=== PATIENT | male | born 1970 | race Hispanic/Latino ===

== ENCOUNTER 2018-10-11 10:40 | Observation (INO) | payer SELFPAY ==
[2018-10-11] MEDS ORDERED: IPRATROPIUM BROM 0.5MG/2.5ML ONE (11:08)
[2018-10-11] MEDS ORDERED: LEVALBUTEROL 1.25 MG/3 ML NEB ONE (11:08)
[2018-10-11 11:16] LABS: Absolute Lymphocytes (CBC) 1.4 K/uL (0.7-4.9); Absolute Monocytes 0.5 K/uL (0.1-1.3); Absolute Neutrophil 4.9 K/uL (1.8-8.0); Basophils % 0.5 % (0-1.3); Eosinophils % 2.6 % (0-4.4); Hematocrit 46.8 % (39.6-49.0); Lymphocytes % 20.1 % (15.3-44.8); MCH 32.5 pg (27.0-35.0); MCV 92.5 fL (80-100); MPV 8.9 fL (7.6-11.3); Monocytes % 6.5 % (3.3-12.3); RBC Red Blood Cell Count 5.06 M/uL (4.33-5.43)
[2018-10-11] MEDS ORDERED: NA CHLORIDE 0.9% 1,000 ML ONE (11:20)
[2018-10-11 11:25] LABS: Blood Gas Oxyhemoglobin 91.5 % (94-97); Blood O2 Saturation 93.5 % (92-98.5)
[2018-10-11] MEDS ORDERED: CA GLUCO IV SCH (12:00)
[2018-10-11] MEDS ORDERED: NA CHLORIDE 0.9% IV SCH (12:00)
--- NOTE | 2018-10-11 12:37 | EKG ---
Test Date: 2018-10-11 Test Time: 11:34:51 Evp Operations: VICKI MEASUREMENT RESULTS: Intervals: Rate: 116 TX: 156 QRSD: 82 QT: 324 QTc: 450 [place]: P: 66 TX: 156 QRS: 53 T: -28 INTERPRETIVE STATEMENTS: Sinus tachycardia Low voltage QRS T wave abnormality, consider inferior ischemia Abnormal ECG No previous ECG available for comparison Electronically Signed On 10-11-18 12:37:04 MANAGER WELDING by Ottoniel Calderon
[2018-10-11 12:55] LABS: BUN Blood Urea Nitrogen 15 mg/dL (7-18); Bicarbonate 23 mmol/L (21-32); Glucose Level 400 mg/dL (74-106); Magnesium 2.1 mg/dL (1.8-2.4); NT PRO-BNP 23 pg/mL (<125); Potassium 4.1 mmol/L (3.5-5.1); Sodium Level 135 mmol/L (136-145); Troponin (Emerg Dept Use Only) < 0.02 ng/mL (0.0-0.045)
--- NOTE | 2018-10-11 13:41 | ER ---
Nurse's Notes [facility] Name: Harriet Ng Age: 48 yrs Sex: Male : 1970 Arrival Date: 10/11/2018 Time: 10:42 Bed 20 Private MD: None, None Diagnosis: Respiratory conditions due to inhalation of chemicals, gases, fumes and vapors;Dyspnea, unspecified;Hyperglycemia, unspecified Presentation: 10/11 10:46 Presenting complaint: Patient states: He found a can that was empty of an "aluminum aj1 waste cotton cleaner" they use on the wheels of 18 wheelers. He filled that container with bleach was using it to clean. He was using a pump sprayer and when he opened it the fumes hit him. Reports burning sensation in his throat, shortness of breath. Transition of care: patient was not received from another setting of care. Onset of symptoms was October 11, 2018 at 09:00. Risk Assessment: Do you want to hurt yourself or someone else? Patient reports no desire to harm self or others. Initial Sepsis Screen: Does the patient meet any 2 criteria? RR > 20 per min. Does the patient have a suspected source of infection? No. Patient's initial sepsis screen is negative. Care prior to arrival: None. 10:46 Method Of Arrival: Ambulatory aj1 10:48 Acuity: JIMMY 2 aj1 Triage Assessment: 10:48 General: Appears in no apparent distress. uncomfortable, Behavior is calm, cooperative, aj1 appropriate for age. Pain: Denies pain. Neuro: Level of Consciousness is awake, alert, obeys commands. Cardiovascular: Patient's skin is warm and dry. 10:48 Respiratory: Reports shortness of breath Airway is patent Respiratory effort is even, aj1 labored, Respiratory pattern is regular, symmetrical, Breath sounds are diminished bilaterally. Historical: - Allergies: 10:48 No Known Allergies; aj1 - PMHx: 10:48 Hypertension; aj1 16:00 Diabetes - NIDDM; sv - Immunization history:: Flu vaccine is not up to date. - Social history:: Smoking status: Patient/guardian denies using tobacco. - Ebola Screening: : Patient denies travel to an Ebola-affected area in the 21 days before illness onset. Screenin:30 Abuse screen: Denies threats or abuse. Denies injuries from another. Nutritional sv screening: No deficits noted. Tuberculosis screening: No symptoms or risk factors identified. Fall Risk None identified. Assessment: 11:00 Reassessment: Patient called the distributor that he gets that waste cotton cleaner from. States it aj1 is "Aluminum trailer waste cotton cleaner" and the active ingredients are sulfuric acid, phosphoric acid and hydrofluoric acid. 11:05 General: Appears in no apparent distress. uncomfortable, obese, well developed, sv Behavior is calm, cooperative, appropriate for age. Pain: Denies pain. Neuro: Level of Consciousness is awake, alert, obeys commands, Oriented to person, place, time, situation, Moves all extremities. Full function Gait is steady, Speech looses breath. Respiratory: Reports shortness of breath at rest on exertion labored breathing pain with respiration Airway is patent Respiratory effort is even, labored, Respiratory pattern is symmetrical, tachypnea Breath sounds are clear in right middle lobe Breath sounds are diminished bilaterally. Derm: Skin is pink, warm \\T\\ dry. Musculoskeletal: Range of motion: intact in all extremities. 11:10 Reassessment: Heather from RT at bedside to obtain ABG. sv 11:18 Reassessment: Spoke with Yolie at Poison Control. Recommendations: CXR, baseline labs, aj1 EKG, cardiac monitoring. Watch for pulmonary edema, and delayed onset pulmonary edema. Patient should be admitted for 24 to 48 hours to watch for pulmonary edema. Monitor calicum levels. Give calcium nebulized to bind HF in lungs bu mixing 1 ampule of 2.5% calcium gluconate in 30 mL on NS, give to patient while in the sitting position for 20 minutes. Give bronchodilators and steroids as needed. 11:59 Reassessment: Patient appears in no apparent distress at this time. No changes from sv previously documented assessment. Patient and/or family updated on plan of care and expected duration. Pain level reassessed. Patient is alert, oriented x 3, equal unlabored respirations, skin warm/dry/pink. 14:01 General: Appears in no apparent distress. comfortable, Behavior is calm, cooperative, sv appropriate for age. Neuro: Level of Consciousness is awake, alert, obeys commands, Oriented to person, place, time, situation, Moves all extremities. Full function. Respiratory: Respiratory effort is even, unlabored, Respiratory pattern is symmetrical, tachypnea Breath sounds are clear in right upper lobe, left upper lobe, left posterior upper lobe, right posterior upper lobe and right posterior middle lobe Breath sounds are diminished in left lower lobe, left posterior lower lobe and right posterior lower lobe. Vital Signs: 10:48 BP 132 / 73; Pulse 112; Resp 28; Temp 97.0(TE); Pulse Ox 93% on R/A; Weight 124.74 kg aj1 (R); Height 6 ft. 1 in. (185.42 cm); Pain 0/10; 11:30 BP 111 / 55; Pulse 118; Resp 29; Pulse Ox 97% on 2 lpm NC; sv 12:45 BP 102 / 50; Pulse 115; Resp 21; Pulse Ox 100% on Nebulizer Mask; sv 13:30 BP 114 / 60; Pulse 116; Resp 25; Pulse Ox 100% on Nebulizer Mask; sv 14:15 BP 122 / 70; Pulse 117; Resp 30; Pulse Ox 98% on 2 lpm NC; sv 15:42 BP 101 / 57; Pulse 109; Resp 28; Pulse Ox 97% on 2 lpm NC; sv 10:48 Body Mass Index 36.28 (124.74 kg, 185.42 cm) aj1 ED Course: 10:42 Patient arrived in ED. sb2 10:42 None, None is Private Physician. sb2 10:48 Arm band placed on Patient placed in an exam room. aj1 10:50 Triage completed. aj1 10:53 [facility] kb 10:53 Sky Ramsey MD is Attending Physician. kb 11:05 Patient has correct armband on for positive identification. Bed in low position. Call sv light in reach. laboratory monitor on. Pulse ox on. NIBP on. Door closed. Head of bed elevated. 11:08 Sangita Chapman, RN is Primary Nurse. sv 11:08 Initial lab(s) drawn, by vt, sent to lab. Inserted saline lock: 20 gauge in right hand, sv using aseptic technique. Blood collected. Flushed right hand with 5 ml normal saline. 11:10 Basic Metabolic Panel Sent. sv 11:55 EKG done, by truck technician. reviewed by Mi WOODSON. sm3 13:40 Lyly Daley MD is Hospitalizing Provider. kb 14:08 XRAY Chest (1 view) In Process Unspecified. EDMS 16:00 No provider procedures requiring assistance completed. Patient admitted, IV remains in sv place. intact. Administered Medications: 11:06 Drug: Xopenex (3) 1.25 mg Route: Inhalation; sv 11:25 Follow up: Treatment stopped and will be changed to a different treatment. sv 11:06 Drug: AtroVENT Aerosol 0.5 mg Route: Inhalation; sv 11:25 Follow up: Treatment stopped and will be changed to a different treatment. sv 11:26 Drug: NS 0.9% 1000 ml Route: IV; Rate: 1000 ml; Site: right hand; sv 12:15 Follow up: Response: No adverse reaction; IV Status: Completed infusion; IV Intake: sv 1000ml 11:57 Drug: calcium gluconate 1 amp Route: Inhalation; Infused Over: 20 mins; sv 13:55 CANCELLED (Physician Discretion): Insulin Regular Human 10 units Sub-Q once kb 14:02 Drug: Insulin Regular Human 6 units {Co-Signature: ss (Ruby Medrano RN).} Route: sv Sub-Q; Site: right upper arm; 14:30 Follow up: Response: No adverse reaction sv Point of Care Testing: Blood Glucose: 13:50 Blood Glucose: 301 mg/dL; sv Ranges: Intake: 12:15 IV: 1000ml; Total: 1000ml. sv Outcome: 13:41 Decision to Hospitalize by Provider. kb 16:00 Admitted to Tele accompanied by tech, via wheelchair, room 204, with oxygen, with sv chart, Report called to Will VILLAFANA 16:00 Condition: stable 16:00 Instructed on the need for admit. 16:22 Patient left the ED. sv Signatures: Dispatcher [employer] EDCA Mi Durand, HANDLE LATHE OPERATOR-C HANDLE LATHE OPERATOR-CkWendy Lowe, RN RN aj1 Sangita Chapman RN RN sv Susan Singh sb2 Sonia Mendiola sm3 Ruby Medrano RN ss
--- NOTE | 2018-10-11 13:42 | EDPHYS ---
Physician Documentation [facility] Name: Harriet Ng Age: 48 yrs Sex: Male : 1970 Arrival Date: 10/11/2018 Time: 10:42 Bed 20 Private MD: None, None ED Physician Sky Ramsey HPI: 10/11 11:34 This 48 yrs old Male presents to ER via Ambulatory with complaints of Chemical Exposure.kb 11:34 Type of Exposure: potential inhalation, a chemical, bleach, hydrofluoric acid. Area of kb exposure: face. Context: The problem was sustained at home. Onset: The symptoms/episode began/occurred just prior to arrival. Symptoms: shortness of breath and burning to throat. The patient has not experienced similar symptoms in the past. The patient has not recently seen a physician. Pt states he mixed some bleach with a container of hydrofluoric acid to clean something. Reports he inhaled the fumes and it caused shortness of breath and burning to the throat. . Historical: - Allergies: 10:48 No Known Allergies; aj1 - PMHx: 10:48 Hypertension; aj1 16:00 Diabetes - NIDDM; sv - Immunization history:: Flu vaccine is not up to date. - Social history:: Smoking status: Patient/guardian denies using tobacco. - Ebola Screening: : Patient denies travel to an Ebola-affected area in the 21 days before illness onset. ROS: 11:52 Constitutional: Negative for fever, chills, and weight loss, Cardiovascular: Negative kb for chest pain, palpitations, and edema, Abdomen/GI: Negative for abdominal pain, nausea, vomiting, diarrhea, and constipation, Back: Negative for injury and pain, MS/Extremity: Negative for injury and deformity, Skin: Negative for injury, rash, and discoloration, Neuro: Negative for headache, weakness, numbness, tingling, and seizure. 11:52 ENT: Positive for sore throat. 11:52 Respiratory: Positive for shortness of breath. Exam: 11:52 Constitutional: This is a well developed, well nourished patient who is awake, alert, kb and in no acute distress. Head/Face: Normocephalic, atraumatic. ENT: Nares patent. No nasal discharge, no septal abnormalities noted. Tympanic membranes are normal and external auditory canals are clear. Oropharynx with no redness, swelling, or masses, exudates, or evidence of obstruction, uvula midline. Mucous membranes moist. Neck: Trachea midline, no thyromegaly or masses palpated, and no cervical lymphadenopathy. Supple, full range of motion without nuchal rigidity, or vertebral point tenderness. No Meningismus. Chest/axilla: Normal chest wall appearance and motion. Nontender with no deformity. No lesions are appreciated. Cardiovascular: Regular rate and rhythm with a normal S1 and S2. No gallops, murmurs, or rubs. Normal PMI, no JVD. No pulse deficits. Abdomen/GI: Soft, non-tender, with normal bowel sounds. No distension or tympany. No guarding or rebound. No evidence of tenderness throughout. Skin: Warm, dry with normal turgor. Normal color with no rashes, no lesions, and no evidence of cellulitis. MS/ Extremity: Pulses equal, no cyanosis. Neurovascular intact. Full, normal range of motion. Neuro: Awake and alert, GCS 15, oriented to person, place, time, and situation. Cranial nerves II-XII grossly intact. Motor strength 5/5 in all extremities. Sensory grossly intact. Cerebellar exam normal. Normal gait. 11:52 Respiratory: the patient does not display signs of respiratory distress, Respirations: normal, Breath sounds: decreased breath sounds, that are mild, are located in both bases. Vital Signs: 10:48 BP 132 / 73; Pulse 112; Resp 28; Temp 97.0(TE); Pulse Ox 93% on R/A; Weight 124.74 kg aj1 (R); Height 6 ft. 1 in. (185.42 cm); Pain 0/10; 11:30 BP 111 / 55; Pulse 118; Resp 29; Pulse Ox 97% on 2 lpm NC; sv 12:45 BP 102 / 50; Pulse 115; Resp 21; Pulse Ox 100% on Nebulizer Mask; sv 13:30 BP 114 / 60; Pulse 116; Resp 25; Pulse Ox 100% on Nebulizer Mask; sv 14:15 BP 122 / 70; Pulse 117; Resp 30; Pulse Ox 98% on 2 lpm NC; sv 15:42 BP 101 / 57; Pulse 109; Resp 28; Pulse Ox 97% on 2 lpm NC; sv 10:48 Body Mass Index 36.28 (124.74 kg, 185.42 cm) aj1 MDM: 10:53 Patient medically screened. kb 11:52 Data reviewed: vital signs, nurses notes. Data interpreted: Pulse oximetry: on room air kb is 97 %. Interpretation: normal. 13:03 ED course: Poison control contacted. Recommend baseline labs, CXR, EKG, nebulized kb calcium gluconate and hospitalization for 24-48 hours for monitoring. 13:37 Counseling: I had a detailed discussion with the patient and/or guardian regarding: the kb historical points, exam findings, and any diagnostic results supporting the discharge/admit diagnosis, lab results, radiology results, the need for further work-up and treatment in the hospital. Physician consultation: Lyly Daley MD was contacted at 13:37, regarding admission, to the telemetry unit. patient's condition. 10/11 10:59 Order name: Basic Metabolic Panel kb 10/11 10:59 Order name: CBC with Diff; Complete Time: 11:18 kb 10/11 10:59 Order name: Magnesium; Complete Time: 13:05 kb 10/11 10:59 Order name: NT PRO-BNP; Complete Time: 13:06 kb 10/11 10:59 Order name: Troponin (emerg Dept Use Only); Complete Time: 13:06 kb 10/11 10:59 Order name: ABG; Complete Time: 11:53 kb 10/11 10:59 Order name: XRAY Chest (1 view); Complete Time: 14:24 kb 10/11 11:00 Order name: Basic Metabolic Panel; Complete Time: 13:05 EDMS 10/11 13:56 Order name: Glucose, Ancillary Testing; Complete Time: 14:00 EDMS 10/11 10:59 Order name: EKG; Complete Time: 11:00 kb 10/11 10:59 Order name: Cardiac monitoring; Complete Time: 11:10 kb 10/11 10:59 Order name: EKG - Nurse/Tech; Complete Time: 11:58 kb 10/11 10:59 Order name: IV Saline Lock; Complete Time: 11:10 kb 10/11 10:59 Order name: Labs collected and sent; Complete Time: 11:10 kb 10/11 10:59 Order name: O2 Per Protocol; Complete Time: 11:10 kb 10/11 10:59 Order name: O2 Sat Monitoring; Complete Time: 11:10 kb 10/11 11:41 Order name: Labs - recollect needed; Complete Time: 13:20 bd Administered Medications: 11:06 Drug: Xopenex (3) 1.25 mg Route: Inhalation; sv 11:25 Follow up: Treatment stopped and will be changed to a different treatment. sv 11:06 Drug: AtroVENT Aerosol 0.5 mg Route: Inhalation; sv 11:25 Follow up: Treatment stopped and will be changed to a different treatment. sv 11:26 Drug: NS 0.9% 1000 ml Route: IV; Rate: 1000 ml; Site: right hand; sv 12:15 Follow up: Response: No adverse reaction; IV Status: Completed infusion; IV Intake: sv 1000ml 11:57 Drug: calcium gluconate 1 amp Route: Inhalation; Infused Over: 20 mins; sv 13:55 CANCELLED (Physician Discretion): Insulin Regular Human 10 units Sub-Q once kb 14:02 Drug: Insulin Regular Human 6 units {Co-Signature: ss (Ruby Medrano RN).} Route: sv Sub-Q; Site: right upper arm; 14:30 Follow up: Response: No adverse reaction sv Point of Care Testing: Blood Glucose: 13:50 Blood Glucose: 301 mg/dL; sv Ranges: Critical Glucose Levels:Adult <50 mg/dl or >400 mg/dl <40 mg/dl or >180 mg/dl Disposition: 10/11/18 13:41 Hospitalization ordered by Lyly Daley for Observation. Preliminary diagnosis are Respiratory conditions due to inhalation of chemicals, gases, fumes and vapors, Dyspnea, unspecified, Hyperglycemia, unspecified. - Bed requested for Telemetry/MedSurg (observation). - Status is Observation. sv - Condition is Stable. - Problem is new. - Symptoms are unchanged. UTI on Admission? No Addendum: 10/16/2018 06:23 Co-signature as Attending Physician, Sky Ramsey MD I agree with the assessment and c diana plan of care. Signatures: Dispatcher [employer] Mi Gomez FNP-C FNP-Cassia Mckinney Angela RN RN ajSangita Matos RN RN sv Siria Hernandez RN RN dw Anderson, Corey, MD MD cha Shelby Smirch RN ss Corrections: (The following items were deleted from the chart) 10/11 13:41 13:41 Hospitalization Ordered by Lyly Daley MD for Observation. Preliminary diagnosis kb is Respiratory conditions due to inhalation of chemicals, gases, fumes and vapors; Dyspnea, unspecified. Bed requested for Telemetry/MedSurg (observation). Status is Observation. Condition is Stable. Problem is new. Symptoms are unchanged. UTI on Admission? No. kb 13:55 13:40 Insulin Regular Human 10 units Sub-Q once ordered. kb kb 15:34 13:41 10/11/2018 13:41 Hospitalization Ordered by Lyly Daley MD for Observation. dw Preliminary diagnosis is Respiratory conditions due to inhalation of chemicals, gases, fumes and vapors; Dyspnea, unspecified; Hyperglycemia, unspecified. Bed requested for Telemetry/MedSurg (observation). Status is Observation. Condition is Stable. Problem is new. Symptoms are unchanged. UTI on Admission? No. kb 16:22 15:34 10/11/2018 13:41 Hospitalization Ordered by Lyly Daley MD for Observation. sv Preliminary diagnosis is Respiratory conditions due to inhalation of chemicals, gases, fumes and vapors; Dyspnea, unspecified; Hyperglycemia, unspecified. Bed requested for Telemetry/MedSurg (observation). Status is Observation. Condition is Stable. Problem is new. Symptoms are unchanged. UTI on Admission? No. dw
[2018-10-11] MEDS ORDERED: INSULIN -REGULAR HUMAN 50 UNIT/0.5 ML ML ONE (14:03)
--- NOTE | 2018-10-11 14:24 | RAD REPORT ---
EXAM DESCRIPTION: RAD - Chest Single View - 10/11/2018 2:08 pm CLINICAL HISTORY: DYSPNEA Chest pain. COMPARISON: No comparisons FINDINGS: Portable technique limits examination quality. Mild interstitial pulmonary edema is present. The heart is normal in size. No displaced fractures. IMPRESSION: Mild interstitial pulmonary edema is present.
--- NOTE | 2018-10-11 15:17 | P.HP ---
Certification for Inpatient Patient admitted to: Observation With expected LOS: <2 Midnights Practitioner: I am a practitioner with admitting privileges, knowledge of patient current condition, hospital course, and medical plan of care. Services: Services provided to patient in accordance with Admission requirements found in Title 42 Section 412.3 of the Code of Federal Regulations Patient History Date of Service: 10/11/18 Primary Care Provider: None Reason for admission: Shortness of breath History of Present Illness: This is a 48-year-old male with history hypertension and diabetes admitted for shortness of breath, burning of his throat. Per patient, he makes some Clorox/ bleach with acid that was in a bottle in order to clean the front of his house. He noted the reaction in the bottle and he saw the pressure building up inside the bottle but he still opened the top of the bottle and accidentally breathed in the fumes through his nose and mouth. Since then he has been having shortness of breath and burning of his throat. In the ER, he was given breathing treatment of calcium gluconate to buying the acid, and was put on oxygen via nasal cannula. Poison control was called, recommended monitoring for delayed onset pulmonary edema. At the time of my exam, patient was on 2 L nasal cannula, in no acute distress, alert oriented x3. Allergies No Known Allergies Allergy (Unverified 10/11/18 11:35) - Past Medical/Surgical History Diabetic: Yes -: Hypertension -: Diabetes mellitus, type 2 Review of Systems General: Unremarkable Eyes: Unremarkable ENT: Throat Pain, As per HPI Respiratory: Shortness of Breath, As per HPI Cardiovascular: Unremarkable Gastrointestinal: Unremarkable Genitourinary: Unremarkable Musculoskeletal: Unremarkable Integumentary: Unremarkable Neurological: Unremarkable Lymphatics: Unremarkable Physical Examination - Physical Exam General: Alert, In no apparent distress, Oriented x3 HEENT: Atraumatic, PERRLA, Mucous membr. moist/pink, EOMI, Sclerae nonicteric Neck: Supple, 2+ carotid pulse no bruit, No LAD, Without JVD or thyroid abnormality Respiratory: Clear to auscultation bilaterally, Normal air movement, Other (No evidence of edema noted on exam at this time) Cardiovascular: Regular rate/rhythm, Normal S1 S2 Gastrointestinal: Normal bowel sounds, No tenderness Musculoskeletal: No tenderness Integumentary: No rashes Neurological: Normal gait, Normal speech, Normal strength at 5/5 x4 extr, Normal tone, Normal affect Lymphatics: No axilla or inguinal lymphadenopathy - Studies Laboratory Data (last 24 hrs) 10/11/18 12:10: Sodium 135 L, Potassium 4.1, BUN 15, Creatinine 1.00, Glucose 400 H, Magnesium 2.1 10/11/18 11:08: WBC 7.0, Hgb 16.4, Hct 46.8, Plt Count 180 Assessment and Plan - Plan This is a 48-year-old male with: Acute dyspnea secondary to inhalation of toxic fumes: Improved Continue oxygen via nasal cannula as needed. Will try to wean off as tolerated Initial chest x-ray with mild interstitial fluid, though does not sound like fluid overloaded on exam. Will repeat chest x-ray tomorrow, and if no symptomatic improvement may consider adding Lasix for diuresis. Essential Hypertension The patient takes Avapro at home, unsure of dosage. Currently stable blood pressure. Will restart home medications once dosage confirmed. Diabetes mellitus, type 2 with hyperglycemia Per patient, he has diabetes medication at home but he does not regularly take with them at home. Accu-Cheks and sliding scale insulin ordered. Educated patient on importance of taking medications and having primary care physician follow up for chronic diseases. Will need to provide a list of PCPs prior to discharge. DVT prophylaxis: Not indicated GI prophylaxis: Not indicated Diet: Diabetic diet Disposition: Admit to floor for observation, with tele. Monitor respiratory symptoms. Discharge Plan: Home - Advance Directives Does patient have a Living Will: No Does patient have a Durable POA for Healthcare: No Physician Review: Patient Assessed, Agree with Above Assessment and Plan Time Spent Managing Pts Care (In Minutes): 55
[2018-10-11] MEDS ORDERED: ACETAMINOPHEN 500 MG TAB PO PRN (16:56)
[2018-10-11] MEDS ORDERED: ONDANSETRON 4 MG/2 ML VIAL IV PRN (16:56)
[2018-10-11 17:44] VITALS: BMI 32.3
[2018-10-11] MEDS: INSULIN -REGULAR HUMAN 50 UNIT/0.5 ML ML SQ SCH ×2 (18:10→22:10)
[2018-10-11 19:28] LABS: Urine Appearance CLEAR; Urine Bilirubin NEGATIVE (NEG); Urine Blood NEGATIVE (NEG); Urine Color YELLOW; Urine Glucose 3+ (NEG); Urine Protein NEGATIVE (NEG); Urine Specific Gravity >=1.030 (1.005-1.030); Urine pH 6.5 (5.0-7.0)
[2018-10-11 19:38] LABS: Urine Microscopic Reflex NO UMIC
[2018-10-12 05:36] LABS: Absolute Lymphocytes (CBC) 1.2 K/uL (0.7-4.9); Absolute Monocytes 0.4 K/uL (0.1-1.3); Absolute Neutrophil 2.3 K/uL (1.8-8.0); Basophils % 0.3 % (0-1.3); Eosinophils % 4.4 % (0-4.4); Hematocrit 42.1 % (39.6-49.0); Lymphocytes % 29.9 % (15.3-44.8); MCH 32.6 pg (27.0-35.0); MCV 92.2 fL (80-100); RBC Red Blood Cell Count 4.57 M/uL (4.33-5.43)
[2018-10-12 05:51] LABS: ALT/SGPT 65 U/L (12-78); AST/SGOT 49 U/L (15-37); Albumin 3.3 g/dL (3.4-5.0); Alkaline Phosphatase 95 U/L (45-117); BUN Blood Urea Nitrogen 13 mg/dL (7-18); Bicarbonate 27 mmol/L (21-32); Bilirubin Total 0.9 mg/dL (0.2-1.0); Glucose Level 208 mg/dL (74-106); Phosphorus 3.7 mg/dL (2.5-4.9); Potassium 3.9 mmol/L (3.5-5.1); Protein, Total 6.7 g/dL (6.4-8.2); Sodium Level 136 mmol/L (136-145)
[2018-10-12] MEDS ORDERED: POTASSIUM CL SA 10 MEQ TAB PO ONE (06:00)
[2018-10-12] MEDS: INSULIN -REGULAR HUMAN 50 UNIT/0.5 ML ML SQ SCH ×2 (08:27→11:41)
[2018-10-12 08:42] VITALS: TEMP 97.4
[2018-10-12 09:50] VITALS: O2SAT 94
--- NOTE | 2018-10-12 12:04 | RAD REPORT ---
EXAM DESCRIPTION: RAD - Chest Pa And Lat (2 Views) - 10/12/2018 8:11 am CLINICAL HISTORY: Shortness of breath Chest pain. COMPARISON: Chest Single View dated 10/11/2018 FINDINGS: Streaky linear opacities are present in the left lung base which may represent atelectasis or aspiration. The lungs are otherwise clear. The heart is normal in size. No displaced fractures.
[2018-10-12 12:28] VITALS: BP 132/75
--- NOTE | 2018-10-12 12:47 | P.SSS ---
Patient History Date of Service: 10/12/18 Primary Care Provider: None Reason for admission: Shortness of breath History of Present Illness: This is a 48-year-old male with history hypertension and diabetes admitted for shortness of breath, burning of his throat. Per patient, he makes some Clorox/ bleach with acid that was in a bottle in order to clean the front of his house. He noted the reaction in the bottle and he saw the pressure building up inside the bottle but he still opened the top of the bottle and accidentally breathed in the fumes through his nose and mouth. Since then he has been having shortness of breath and burning of his throat. In the ER, he was given breathing treatment of calcium gluconate to buying the acid, and was put on oxygen via nasal cannula. Poison control was called, recommended monitoring for delayed onset pulmonary edema. At the time of my exam, patient was on 2 L nasal cannula, in no acute distress, alert oriented x3. Allergies No Known Allergies Allergy (Verified 10/11/18 17:56) Home Medications: Atorvastatin Calcium 20 mg PO BEDTIME 10/11/18 Irbesartan/Hydrochlorothiazide [Avalide 150-12.5 mg Tablet] 1 each PO DAILY Metformin HCl [Glucophage*] 500 mg PO BID 10/11/18 - Past Medical/Surgical History Diabetic: Yes -: Hypertension -: Diabetes mellitus, type 2 - Family History Mother -: Hypertension, Diabetes Father -: Cancer - Social History Smoking Status: Never smoker Alcohol use: Yes CD- Drugs: No Caffeine use: Yes Place of Residence: Home Review of Systems As noted Physical Examination - Vital Signs Temperature: 97.4 F Blood Pressure: 132/75 Pulse: 91 Respirations: 18 Pulse Ox (%): 96 - Physical Exam General: Alert, In no apparent distress, Oriented x3 HEENT: Atraumatic, PERRLA, Mucous membr. moist/pink, EOMI, Sclerae nonicteric Neck: Supple, 2+ carotid pulse no bruit, No LAD, Without JVD or thyroid abnormality Respiratory: Clear to auscultation bilaterally, Normal air movement Cardiovascular: Regular rate/rhythm, Normal S1 S2 Gastrointestinal: Normal bowel sounds, No tenderness Musculoskeletal: No tenderness Integumentary: No rashes Neurological: Normal gait, Normal speech, Normal strength at 5/5 x4 extr, Normal tone, Normal affect Lymphatics: No axilla or inguinal lymphadenopathy - Studies Laboratory Data (last 24 hrs) 10/11/18 12:10: Sodium 135 L, Potassium 4.1, BUN 15, Creatinine 1.00, Glucose 400 H, Magnesium 2.1 Treatment Summary: Acute dyspnea secondary to inhalation of toxic fumes: Resolved. At the time of discharge, patient breathing well on room air, satting well on room air. In no acute distress, alert oriented x3. Repeat chest x-ray reviewed, no abnormalities noted. No Lasix as needed, no evidence of pulmonary edema noted. Patient to be discharged home in a stable manner. No medication changes made. Essential Hypertension Remained stable on home medications. No changes made. Diabetes mellitus, type 2 with hyperglycemia Per patient, he has diabetes medication at home but he does not regularly take with them at home. Educated patient on importance of taking medications and having primary care physician follow up for chronic diseases. Patient states he does have a primary care physician, he will make an appointment for further management. He will restart his home metformin on a regular basis till then. - Disposition Condition: GOOD Patient Discharge Instructions: Please follow up with the primary care physician in 1 week. Please restart taking your diabetes medications as prescribed as we discussed. Diet: ADA Activity: Ad stephani Physician Review: Patient Assessed, Agree with Above Assessment and Plan Time Spent Managing Pts Care (In Minutes): 45
== END 2018-10-12 13:13 | disposition home or self-care (01) ==
LOC: ER 10:40 → ERHOLD 13:43 → 2ND 16:00
PROVIDERS: ADMIT Family Medicine; ATTEND Family Medicine
DX: T54.91XA Toxic effect of unspecified corrosive substance, accidental (unintentional), initial encounter (principal); R06.02 Shortness of breath; Y92.007 Garden or yard of unspecified non-institutional (private) residence as the place of occurrence of the external cause; I10 Essential (primary) hypertension; E11.65 Type 2 diabetes mellitus with hyperglycemia
CPT/HCPCS: 36415; 71045; 71046; 80048; 80053; 81003; 82805; 82962; 83735; 83880; 84100; 84484; 85025; 93005; 94760; 96360; 96372; 99285; G0378; J0610; J7030

== ENCOUNTER 2024-01-13 10:55 | Day surgery (SDC) | payer OTHER ==
[2024-01-11 15:44] LABS: Absolute Lymphocytes (CBC) 0.8 K/uL (0.7-4.9); Hematocrit 41.4 % (39.6-49.0); MCV 93.3 fL (80-100); MPV 8.6 fL (7.6-11.3); Platelets 82 thou/uL (152-406); RBC Red Blood Cell Count 4.44 M/uL (4.33-5.43)
[2024-01-11 15:45] LABS: Blood Morphology Comment NOT SEEN (NOT SEEN); Platelet Estimate DECR; White Blood Cell Scan OK (OK)
[2024-01-11 15:57] LABS: Potassium 4.4 mEq/L (3.5-5.1)
--- NOTE | 2024-01-11 15:59 | RAD REPORT ---
EXAM DESCRIPTION: RAD - Chest Pa And Lat (2 Views) - 01/11/2024 3:52 pm CLINICAL HISTORY: pre op, hypertension and diabetes COMPARISON: Chest Pa And Lat (2 Views) dated 10/12/2018; Chest Single View dated 10/11/2018 FINDINGS: Lines: None. Lungs: No evidence of edema or pneumonia. Pleural: No significant pleural effusions or pneumothorax. Cardiac: The heart size is within normal limits. Mediastinum: Within normal limits. Bones: No acute fractures. Other: None IMPRESSION: No acute cardiopulmonary disease.
--- NOTE | 2024-01-12 16:07 | EKG ---
Test Date: 2024-01-11 Test Time: 16:25:49 Senior Environmental Consultant: NOLBERTO MEASUREMENT RESULTS: Intervals: Rate: 86 UT: 146 QRSD: 94 QT: 352 QTc: 421 [place]: P: 62 UT: 146 QRS: 32 T: -6 INTERPRETIVE STATEMENTS: Normal sinus rhythm Normal ECG Compared to ECG 10/11/2018 11:34:51 Sinus tachycardia no longer present T-wave abnormality no longer present Possible ischemia no longer present Electronically Signed On 01-12-24 16:04:45 SPOOLING MACHINE OPERATOR by Harsh Magana
[2024-01-13] MEDS: NA CHLORIDE 0.9% 1,000 ML ONE (11:11)
[2024-01-13] MEDS ORDERED: MIDAZOLAM HCL 2 MG/2 ML INJ ONE (12:10)
[2024-01-13] MEDS ORDERED: propofoL 200 MG/20 ML VIAL IV ONE (12:10)
[2024-01-13] MEDS ORDERED: ROCURONIUM 50 MG/5 ML VIAL IV ONE (12:10)
[2024-01-13] MEDS ORDERED: LIDOCAINE 2% MPF 5 ML VIAL ONE (12:10)
[2024-01-13] MEDS ORDERED: GLYCOPYRROLATE 0.2 MG/ML SYR ONE (12:13)
[2024-01-13] MEDS ORDERED: dexAMETHasone 10 MG/ML VIAL ONE (12:13)
[2024-01-13] MEDS ORDERED: KETOROLAC 30 MG/ML INJ ONE (12:13)
[2024-01-13] MEDS ORDERED: NEOSTIGMINE 1 MG/ML -10 ML VIAL ONE (12:13)
[2024-01-13] MEDS ORDERED: ROPIVACAINE HCL 0 ML ONE (12:17)
[2024-01-13] MEDS ORDERED: HYDROMORPHONE HCL 2 MG/ML inj ONE (12:17)
[2024-01-13] MEDS ORDERED: DEXMEDETOMIDINE HCL 200 MCG/2 ML VIAL ONE (12:17)
[2024-01-13] MEDS: CEFAZOLIN SODIUM 1 GM/VIAL ONE (12:29)
[2024-01-13] MEDS: Ringers Lactate 1,000 ML IV ONE (13:15)
--- NOTE | 2024-01-13 13:33 | P.BOP ---
Preoperative diagnosis: incarcerated tender umbilical hernia Postoperative diagnosis: same Primary procedure: Laparoscopic repair of incarcerated tender umbilical hernia with mesh Estimated blood loss: <10cc Specimen: sac Findings: as above . nodular liver (see picture) Anesthesia: General Complications: None Transferred to: Recovery Room Condition: Good
[2024-01-13 14:18] VITALS: O2SAT 96
[2024-01-13] MEDS: HYDROCODONE/APAP 5/325 MG TAB ONE (14:27)
[2024-01-13 15:35] VITALS: BP 126/59; TEMP 97.2
--- NOTE | 2024-01-14 00:26 | OP ---
Date of Procedure: 01/13/2024 Surgeon: Alexis Harry MD Preoperative Diagnoses: Incarcerated tender umbilical hernia, morbid obesity. Postoperative Diagnoses: Incarcerated tender umbilical hernia, morbid obesity. Procedures: Laparoscopic repair of incarcerated tender umbilical hernia with mesh. Estimated Blood Loss: Less than 10 cc. Specimen: Hernia sac. Findings: Incarcerated omentum with some small bowel pushing through into the umbilical hernia. Als o, when we put the cameras in, we noticed a very multinodular liver. He will be advised to see his g astroenterologist to rule out cirrhosis of the liver. I took some pictures for him to show his gastr oenterologist. Anesthesia: General plus local. Complications: None. Indications: This is a case of a 53-year-old patient who comes to us with incarcerated tender umbili alexey hernia and also morbid obesity. The patient was fully explained the need to lose some weight. A t the same time, he was fully explained the benefits, alternatives, and risks, laparoscopic and possi ble open repair of incarcerated tender umbilical hernia, which include, but not limited to, infection , bleeding, damage to adjacent structures, anesthesia complication, recurrence, ND, and even . He also understands this may not relieve any symptoms. He might need more than one surgical interven tion. He also understands the need of weight loss and no heavy lifting. We may be using mesh in hanh t region, so pros and cons of mesh placement discussed with the patient. All the questions were answ ered to his satisfaction. He signed a consent. Procedure In Detail: The patient was brought to the operating room, placed in supine position. Anes thesia was done without complication. Abdominal area was prepped and draped in the usual sterile fas hion. Marcaine 0.5% was injected for local anesthetic, followed by sharp incision of the skin in the periumbilical region. Incision was carried down to the hernia sac. We had a lot of skin attached t o the umbilical hernia sac. This was large. We carefully inspected the hernia sac. Reduced some of the bowel present in that region with some omentum. Then, took this hernia sac all the way down to the ring of the fascia. We noticed the rings of the fascia, even though it is present, it was still weak, so we may have to put mesh in that region. The ring of the fascia was carefully cleaned. We p laced #1 Prolene in a mwyxgg-[id number] fashion multiple times to approximate the defect. Before we ti ed those, we put a Liliana trocar in. This allowed me to obtain pneumoperitoneum. We inspected the i ntraabdominal area further. We placed two 5 mm trocars, 1 on the left side, 1 on the right side and then changed the camera to that region to visualize the area of the center. We noted that we have a median Ventralex mesh. We can cover the defect by 3 to 5 cm, so we introduced the Ventralex mesh thr ough the umbilical trocar. Removed the umbilical trocar. Tied the stitches, most of them, but not t he last one since we want to make sure we secured the Ventralex to the anterior abdominal wall with S orbaFix first. Once we had those, then we proceeded to remove the strap of the Ventralex mesh and cl osed the fascia with #1 Prolene multiple times [id number] fashion and then we further circumfere ntially under direct visualization fixated the mesh to the anterior abdominal wall using SorbaFix fix ation device. The area was irrigated. No bleeding. The area of the bowel and the omentum looked in tact. The mesh looked nice against the anterior abdominal wall with no tissue in between other than the fascia and the peritoneum. We carefully deflated pneumoperitoneum under direct visualization and removed the trocars. Then, closed the subcutaneous tissue of the umbilical region with 3-0 chromic and the skin with esperanza and cotton balls on top. Sponge count and instrument counts correct. The patient tolerated procedure well. The patient was sent to recovery in stable condition. Disposition: Home. Condition: Stable. Activity: As tolerated. No lifting. Followup: In my office in 1 week, call for appointment #[phone]. Keep surgical area intact until h e sees us again in the clinic. He was advised to discuss with the needle process felt goods supervisor and his primary doctor soon, workup for cirrhosis of the liver of unknown etiology. HM/MODL Voice ID: [id number] Report ID: [id number]
== END 2024-01-13 15:10 | disposition home or self-care (01) ==
LOC: OR 10:55
PROVIDERS: ATTEND Surgery
PROC: 0WUF4JZ Supplement Abdominal Wall with Synthetic Substitute, Percutaneous Endoscopic Approach (ICD-10-PCS; principal; 2024-01-13 12:30)
DX: K42.0 Umbilical hernia with obstruction, without gangrene (principal); E66.01 Morbid (severe) obesity due to excess calories; Z68.32 Body mass index [BMI] 32.0-32.9, adult
CPT/HCPCS: 93005; 85025; 80048; 36415; 82947 ×2; 88302; 71046; 49594; J2704; J2710; J2001; J2250; J1170; J1100; J7120; J7030; J0690

== ENCOUNTER 2024-12-25 11:03 | Inpatient (IN) | payer OTHER ==
--- NOTE | 2024-12-25 12:42 | RAD REPORT ---
EXAMINATION: XR Foot Left 3 View CLINICAL INDICATION: Male, 54 years old. [facility] MAIN wound Bed Name: 28 TECHNIQUE: 3 view radiographs of the left foot were obtained. COMPARISON: No prior exam. FINDINGS: Osseous destructive changes and lucency involving the head of the fifth metatarsal, with ad jacent soft tissue swelling and gas. Gas also extends along the base of the fifth toe and fourth toe in the region of the fourth metatarsophalangeal joint, both along the volar and dorsal aspects. J oint alignment is maintained. No evidence of acute fractures. Vascular calcifications. Mild enthesopathy at the Achilles tendon attachment. No significant degenerative changes. IMPRESSION: Soft tissue gas along the lateral forefoot as above, with osseous mild destructive changes and lucenc ies involving the head of the fifth metatarsal, concerning for ongoing acute osteomyelitis.
[2024-12-25] MEDS ORDERED: NA CHLORIDE 0.9% 250 ML ONE (12:50)
[2024-12-25] MEDS ORDERED: NA CHLORIDE 0.9% 100 ML ONE (12:50)
[2024-12-25] MEDS ORDERED: PIPERACIL/TAZO 3.375 GM VIAL IV ONE (12:50)
[2024-12-25] MEDS ORDERED: VANCOMYCIN 1 GM/VIAL ONE ×2 (12:50→15:32)
[2024-12-25 12:59] LABS: Absolute Eosinophils 0.1 K/uL (0-0.5); Absolute Lymphocytes (CBC) 0.7 K/uL (0.7-4.9); Absolute Monocytes 0.9 K/uL (0.1-1.3); Absolute Neutrophil 5.7 K/uL (1.8-8.0); Basophils % 0.6 % (0-1.3); Eosinophils % 1.8 % (0-4.4); Hemoglobin 11.7 g/dL (13.6-17.9); Lymphocytes % 9.5 % (15.3-44.8); MCH 29.7 pg (27.0-35.0); MCHC 34.3 g/dL (32.0-36.0); MCV 86.5 fL (80-100); MPV 8.7 fL (7.6-11.3); Monocytes % 11.8 % (3.3-12.3); Neutrophils % 76.3 % (41.7-73.7); Platelets 122 thou/uL (152-406); RBC Red Blood Cell Count 3.94 M/uL (4.33-5.43); Red Cell Distribution Width 15.2 % (12.1-15.2)
[2024-12-25 13:19] LABS: PT Prothrombin Time 15.2 SECONDS (9.4-12.5); PTT, Activated Partial Thromb 34.6 SECONDS (24.3-36.9); Protime INR 1.45
[2024-12-25 13:20] LABS: Albumin 2.5 g/dL (3.4-5.0); Albumin/Globulin Ratio 0.5 (1.1-1.8); Anion Gap 10.2 mEq/L (5.0-15.0); Bilirubin Total 1.8 mg/dL (0.2-1.0); Globulin 4.6 g/dL (2.3-3.5); Potassium 4.2 mEq/L (3.5-5.1); Protein, Total 7.1 g/dL (6.4-8.2)
--- NOTE | 2024-12-25 13:36 | EDPHYS ---
Physician Documentation [facility] Name: Harriet Ng Age: 54 yrs Sex: Male : 1970 Arrival Date: 12/25/2024 Time: 11:03 Bed 28 Private MD: ED Physician Mark Yang HPI: 12/25 11:29 This 54 yrs old Male presents to ER via Ambulatory with complaints of Wound ms3 Infection - right foot. 11:29 Harriet Ng presents to the Emergency Department with a complaint of foot wound that ms3 has been ongoing for seven to eight days. He has not sought medical care for this issue prior to today. He reports having diabetes and is experiencing pain, which he rates a 6/10 a scale of one to ten. He reports that the pain is located in between his toes and is spreading. He does not report having any fevers, chills, nausea, or vomiting.. Historical: - Allergies: 11:13 No Known Allergies; ll1 - Home Meds: 11:13 vitamins [Active]; ll1 - PMHx: 11:13 Diabetes - NIDDM; Hypertension; ll1 - PSHx: 11:13 hernia repair (Hypertension); ll1 - Immunization history:: Adult Immunizations up to date. - Infectious Disease History:: Denies. - Social history:: Smoking status: Patient denies any tobacco usage or history of. ROS: 11:29 Constitutional: Negative for fever, and chills. Cardiovascular: Negative for chest ms3 pain, and palpitations. Respiratory: Negative for shortness of breath, cough, wheezing, and pleuritic chest pain, Abdomen/GI: Negative for abdominal pain, nausea, vomiting, diarrhea, and constipation, 11:29 Skin: Positive for Right foot wound, Exam: 11:29 Constitutional: This is a well developed, well nourished patient who is awake, alert, ms3 and in no acute distress. Cardiovascular: Regular rate and rhythm with a normal S1 and S2. No gallops, murmurs, or rubs. Normal PMI, no JVD. No pulse deficits. Respiratory: Lungs have equal breath sounds bilaterally, clear to auscultation and percussion. No rales, rhonchi or wheezes noted. No increased work of breathing, no retractions or nasal flaring. Abdomen/GI: Soft, non-tender, with normal bowel sounds. No distension or tympany. No guarding or rebound. No evidence of tenderness throughout. 11:29 Musculoskeletal/extremity: Extremities: noted in the right foot: Ulceration of lateral foot, distal foot erythema, , Vital Signs: 11:14 BP 147 / 89; Pulse 92; Resp 17; Temp 98.9; Pulse Ox 100% ; Weight 112.49 kg; Height 6 ll1 ft. 1 in. ; Pain 6/10; 12:15 BP 154 / 77; Pulse 92; Resp 16; Pulse Ox 99% on R/A; db 12:45 BP 138 / 65; Pulse 93; Resp 18; Pulse Ox 100% on R/A; db 13:45 BP 136 / 86; Pulse 97; Resp 18; Pulse Ox 99% on R/A; db 11:14 Body Mass Index 32.72 (112.49 kg, 185.42 cm) ll1 11:14 Pain Scale: Adult ll1 MDM: 11:26 Medical Screening Exam initiated ms3 11:29 Differential diagnosis: Diabetic foot ulcer vs Cellulitis vs Osteomyelitis. ms3 13:40 Data reviewed: vital signs, nurses notes, lab test result(s), radiologic studies, and ms3 as a result, I will admit patient. Consideration of Admission/Observation Patient was admitted/placed on observation. Management of patient was discussed with the following: Hospitalist: Dr Ward. Production Scheduler: Dr Slaughter. I considered the following discharge prescriptions or medication management in the emergency department Medications were administered in the Emergency Department. See MAR. Counseling: I had a detailed discussion with the patient and/or guardian regarding the historical points, exam findings, and any diagnostic results supporting the discharge/admit diagnosis, lab results, radiology results, the need for further work-up and treatment in the hospital. ED course: Discussed plan for admission with patient and his . They understand agree with plan. All questions were answered.. 12/25 11:26 Order name: Blood Culture Adult (2) ms3 12/25 11:26 Order name: CBC with Diff; Complete Time: 13:34 ms3 12/25 11:26 Order name: CMP; Complete Time: 13:34 ms3 12/25 11:26 Order name: Lactate w/ 2H reflex if indic.; Complete Time: 13:34 ms3 12/25 11:26 Order name: Protime (+inr); Complete Time: 13:34 ms3 12/25 11:26 Order name: Ptt, Activated; Complete Time: 13:34 ms3 12/25 14:29 Order name: Urinalysis w/ reflexes EDMS / 14:29 Order name: CBC with Automated Diff EDMS / 14:29 Order name: CBC with Automated Diff EDMS 12/25 14:29 Order name: CBC with Automated Diff EDMS 12/25 14:29 Order name: CBC with Automated Diff EDMS 12/25 14:29 Order name: CBC with Automated Diff EDMS 12/25 14:29 Order name: Comprehensive Metabolic Panel EDMS 12/25 14:29 Order name: Comprehensive Metabolic Panel EDMS 12/25 14:29 Order name: Magnesium EDMS 12/25 14:29 Order name: Magnesium EDMS 12/25 14:29 Order name: Phosphorus EDMS 12/25 14:29 Order name: Phosphorus EDMS 12/25 14:29 Order name: Protime (+INR) EDMS 12/25 14:29 Order name: Protime (+INR) EDMS 12/25 14:29 Order name: C-Reactive Protein EDMS 12/25 14:29 Order name: C-Reactive Protein EDMS 12/25 11:26 Order name: Foot Left 3 View XRAY; Complete Time: 13:34 ms3 12/25 12:35 Order name: Foot Left Wo Cont EDMS 12/25 13:01 Order name: Lower Extremity Arterial Bilat; Complete Time: 14:08 EDMS 12/25 12:34 Order name: CONS Physician Consult EDMS 12/25 11:26 Order name: Accucheck; Complete Time: 13:00 ms3 12/25 11:26 Order name: Cardiac monitoring; Complete Time: 13:00 ms3 12/25 11:26 Order name: EKG - Nurse/Tech; Complete Time: 12:49 ms3 12/25 11:26 Order name: IV Saline Lock - Large Bore; Complete Time: 12:49 ms3 12/25 11:26 Order name: Labs collected and sent; Complete Time: 12:49 ms3 12/25 11:26 Order name: O2 Per Protocol; Complete Time: 11:44 ms3 12/25 11:26 Order name: O2 Sat Monitoring; Complete Time: 11:44 ms3 12/25 11:26 Order name: Vital Signs; Complete Time: 11:44 ms3 12/25 12:57 Order name: Labs - recollect needed: lactic (ferrera); Complete Time: 13:54 bd Administered Medications: 12:50 Drug: Piperacillin-Tazobactam IVPB 3.375 grams IVPB once over 60 mins; (mix in NS 100 db mL) Route: IVPB; Infused Over: 60 mins; Site: right forearm; 13:20 Follow up: Response: No adverse reaction; IV Status: Completed infusion; IV Intake: db 100ml 13:30 Drug: vancoMYCIN IVPB 1 grams IVPB once over 2 hrs Route: IVPB; Infused Over: 2 hrs; db Site: right forearm; 15:48 Follow up: Response: No adverse reaction; IV Status: Infusion continued upon admission db Disposition Summary: 12/25/24 13:36 Hospitalization Ordered Notes: Hospitalization Status: Inpatient Admission ms3 Provider: Ryan Ward ms3 Condition: Stable ms3 Problem: new ms3 Symptoms: are unchanged ms3 Bed/Room Type: Standard ms3 Location: [facility] ER HOLD(12/25/24 14:44) 3 Room Assignment: ERHOLD-(12/25/24 14:44) 3 Diagnosis - Osteomyelitis, unspecified ms3 - Essential (primary) hypertension ms3 Forms: - Medication Reconciliation Form ms3 - SBAR form ms3 - Leadership Thank You Letter ms3 Signatures: Dispatcher [employer] EDMS Cassia Renee Lynsay, RN RN ll1 Mark Yang DO DO ms3 Juliette Gutierrez RN RN kb3 Katie Diego RN RN db Corrections: (The following items were deleted from the chart) 11: 11:27 BLOOD CULTURE*+BA.LAB.BRZ ordered. EDMS EDMS 11: 11:27 CBC+H.LAB.BRZ ordered. EDMS EDMS 11: 11:27 COMPREHENSIVE METABOLIC PANEL+C.LAB.BRZ ordered. EDMS EDMS 11: 11:27 LACTATE+C.LAB.BRZ ordered. EDMS EDMS 11: 11:27 PROTIME (+INR)+COAG.LAB.BRZ ordered. EDMS EDMS 11: 11:27 PTT, ACTIVATED+COAG.LAB.BRZ ordered. EDMS EDMS 11:27 11:27 Foot Left 3 View+RAD.RAD.BRZ ordered. EDMS EDMS 13:01 12:26 Lower Extremity Artery Uni Ltd+US.RAD.BRZ ordered. EDMS EDMS 13:02 12:34 Lower Extremity Artery Uni Ltd+US.RAD.BRZ ordered. EDMS EDMS 14:44 13:36 Telemetry/MedSurg (Inpatient) ms3 kb3 14:44 13:36 ms3 kb3
--- NOTE | 2024-12-25 13:36 | ER ---
Nurse's Notes [facility] Name: Harriet Ng Age: 54 yrs Sex: Male : 1970 Arrival Date: 12/25/2024 Time: 11:03 Bed 28 Private MD: Diagnosis: Osteomyelitis, unspecified;Essential (primary) hypertension Presentation: 12/25 11:14 Chief complaint: Patient states: Wound between R foot 3rd, 4th, 5th digits for 1 week. ll1 Reports some drainage, no fever. Coronavirus screen: Client denies travel out of the [place] in the last 14 days. At this time, the client does not indicate any symptoms associated with coronavirus-19. Ebola Screen: Patient denies travel to an Ebola-affected area in the 21 days before illness onset. Initial Sepsis Screen: Does the patient meet any 2 criteria? No. Patient's initial sepsis screen is negative. Does the patient have a suspected source of infection? No. Patient's initial sepsis screen is negative. Risk Assessment: Do you want to hurt yourself or someone else? Patient reports no desire to harm self or others. Onset of symptoms was December 18, 2024. 11:14 Method Of Arrival: Ambulatory ll1 11:14 Acuity: JIMMY 2 ll1 Triage Assessment: 11:17 General: Appears uncomfortable, Behavior is calm, cooperative, appropriate for age. ll1 Pain: Complains of pain in right foot. Neuro: No deficits noted. Derm: Wound noted top of R foot Wound is slight drainage Abscess located on right foot. Musculoskeletal: Reports pain in right foot. Historical: - Allergies: 11:13 No Known Allergies; ll1 - Home Meds: 11:13 vitamins [Active]; ll1 - PMHx: 11:13 Diabetes - NIDDM; Hypertension; ll1 - PSHx: 11:13 hernia repair (Hypertension); ll1 - Immunization history:: Adult Immunizations up to date. - Infectious Disease History:: Denies. - Social history:: Smoking status: Patient denies any tobacco usage or history of. Screenin:21 Abuse screen: Denies threats or abuse. Denies injuries from another. Nutritional jl7 screening: No deficits noted. Tuberculosis screening: No symptoms or risk factors identified. 14:46 [facility] ED Fall Risk Assessment (Adult) History of falling in the last 3 months, db including since admission No falls in past 3 months (0 pts) Confusion or Disorientation No (0 pts) Intoxicated or Sedated No (0 pts) Impaired Gait No (0 pts) Mobility Assist Device Used No (0 pt) Altered Elimination No (0 pt) Score/Fall Risk Level 0 - 2 = Low Risk Oriented to surroundings, Maintained a safe environment. Assessment: 11:21 Reassessment: Dr. Yang in triage assessing pt. jl7 12:11 Reassessment: CALLED PHLEBOTOMY FOR PATIENT LAB WORK. UNABLE TO OBTAIN X 2 ER STAFF. db 13:07 Reassessment: Patient appears in no apparent distress at this time. Patient and/or db family updated on plan of care and expected duration. Pain level reassessed. Patient is alert, oriented x 3, equal unlabored respirations, skin warm/dry/pink. Derm: Skin is Wound noted right foot. 13:45 Reassessment: Patient appears in no apparent distress at this time. Patient and/or db family updated on plan of care and expected duration. Pain level reassessed. Patient is alert, oriented x 3, equal unlabored respirations, skin warm/dry/pink. SURGEON AT PATIENT BEDSIDE. General: Appears in no apparent distress. comfortable, Behavior is calm, cooperative. Pain: Denies pain. Neuro: Level of Consciousness is awake, alert, obeys commands, Oriented to person, place, time, situation. Respiratory: Airway is patent Respiratory effort is even, unlabored, Respiratory pattern is regular, symmetrical. 14:46 Reassessment: Patient appears in no apparent distress at this time. Patient and/or db family updated on plan of care and expected duration. Pain level reassessed. Patient is alert, oriented x 3, equal unlabored respirations, skin warm/dry/pink. RIGHT FOOT DRESSED. Vital Signs: 11:14 BP 147 / 89; Pulse 92; Resp 17; Temp 98.9; Pulse Ox 100% ; Weight 112.49 kg; Height 6 ll1 ft. 1 in. ; Pain 6/10; 12:15 BP 154 / 77; Pulse 92; Resp 16; Pulse Ox 99% on R/A; db 12:45 BP 138 / 65; Pulse 93; Resp 18; Pulse Ox 100% on R/A; db 13:45 BP 136 / 86; Pulse 97; Resp 18; Pulse Ox 99% on R/A; db 11:14 Body Mass Index 32.72 (112.49 kg, 185.42 cm) ll1 11:14 Pain Scale: Adult ll1 ED Course: 11:06 Patient arrived in ED. im 11:14 Mark Yang DO is Attending Physician. ms3 11:15 Triage completed. ll1 11:15 Arm band placed on. ll1 11:21 Patient has correct armband on for positive identification. jl7 12:11 Katie Diego, RN is Primary Nurse. db 12:17 Inserted saline lock: 22 gauge in left hand, using aseptic technique. Flushed with 10 ph mL NS. 12:24 Foot Left 3 View XRAY In Process Unspecified. EDMS 12:35 Initial lab(s) drawn, by ca, sent to lab. First set of blood cultures drawn by me. jl7 12:42 Inserted saline lock: 22 gauge in right hand, using aseptic technique. Blood collected. jl7 Flushed with 10 mL NS. 12:42 Second set of blood cultures drawn by me. EKG done, by ED staff, reviewed by Mark Yang DO. 13:19 Lower Extremity Arterial Bilat In Process Unspecified. EDMS 13:36 Ryan Ward MD is Hospitalizing Provider. ms3 14:46 Provided Education on: DISCHARGE AND FOLLOWUP. Pulse ox on. NIBP on. Pillow given. db 14:47 No provider procedures requiring assistance completed. db 15:00 Patient moved to [facility]. db 15:47 Patient admitted, IV remains in place. db Administered Medications: 12:50 Drug: Piperacillin-Tazobactam IVPB 3.375 grams IVPB once over 60 mins; (mix in NS 100 db mL) Route: IVPB; Infused Over: 60 mins; Site: right forearm; 13:20 Follow up: Response: No adverse reaction; IV Status: Completed infusion; IV Intake: db 100ml 13:30 Drug: vancoMYCIN IVPB 1 grams IVPB once over 2 hrs Route: IVPB; Infused Over: 2 hrs; db Site: right forearm; 15:48 Follow up: Response: No adverse reaction; IV Status: Infusion continued upon admission db Medication: 13:07 VIS not applicable for this client. db Intake: 13:20 IV: 100ml; Total: 100ml. db Outcome: 13:36 Decision to Hospitalize by Provider. ms3 15:47 Admitted to OR accompanied by nurse, with chart, Other FROM MRI db 15:47 Condition: stable 15:47 Instructed on the need for admit, 15:49 Patient left the ED. db Signatures: Dispatcher [employer] EDKarine Rivera, RN RN Yoselin Lu RN RN jl7 Man Salinsa RN RN ll1 Mark Yang DO DO ms3 Katie Diego RN RN db Marietta Nichols Corrections: (The following items were deleted from the chart) 11:46 11:14 Acuity: JIMMY 4 ll1 ll1 11:46 11:14 Acuity: JIMMY 3 ll1 ll1 12:44 11:14 Chief complaint: Patient states: Wound between R foot 3rd, 4th, digits for 1 ll1 week. Reports some drainage, no fever. ll1
--- NOTE | 2024-12-25 13:40 | RAD REPORT ---
EXAMINATION:Lower Extremity Arterial Bilat CLINICAL INDICATION: Male, 54 years old. PAIN TECHNIQUE: Arterial duplex ultrasound was performed of the bilateral lower extremities with real-time , color-flow, and spectral wave Doppler evaluation. Ankle brachial indices were not performed. COMPARISON: No prior exam. FINDINGS: Mild plaque throughout the evaluated arterial system. Triphasic and biphasic waveforms are seen throughout the evaluated left lower extremity arterial syst em, to the level of the dorsalis pedis artery. No other suspicious findings. Triphasic waveforms are seen throughout the evaluated right lower extremity arterial system, to the l evel of the dorsalis pedis artery. No other suspicious findings. IMPRESSION: No evidence of significant peripheral vascular disease.
--- NOTE | 2024-12-25 13:53 | P.HP ---
Certification for Inpatient Patient History Date of Service: 12/25/24 Reason for admission: Soft tissue gas along the lateral forefoot as above, with osseous mild dest History of Present Illness: 54 year old male presents the ER for Right Lower extremity wound. He reports wound on the right lower extremity worse over the last week. Reports moderate amount of drainage. He denies being seen for taking antibiotics. He reports pain to the right lower extremity pain 6/10, between his toes, is getting progressively worse. Pain is worse with ambulation, movement, weightbearing. He reports past medical history of diabetes, hypertension, not taking medications. He denies fever, chills, chest pain, abdominal pain, plan to admit for osteomyelitis of the right lower extremity, diabetes type 2 uncontrolled, hypertension, uncontrolled, with surgery to consult. ER evaluation Xray RLE Soft tissue gas along the lateral forefoot as above, with osseous mild destructive changes and lucencies involving the head of the fifth metatarsal, concerning for ongoing acute osteomyelitis. B LE Arterial Doppler IMPRESSION:No evidence of significant peripheral vascular disease. Oratory evaluation sodium 129 blood glucose 246, hypoalbuminemia 2.5, no leukocytosis, left shift 76.3, microcytic anemia 11.6, 34.0 - Past Medical/Surgical History Diabetic: Yes -: Hypertension -: Diabetes mellitus, type 2 -: 12/25/24 osteomyelitis of the right lower extremity -: Hernia surgery - Family History Mother -: Hypertension, Diabetes Father -: Cancer - Social History Alcohol use: Yes CD- Drugs: No Caffeine use: Yes <Kriss Mcpherson - Last Filed: 12/25/24 17:10> Date of Service: 12/25/24 <Ryan Ward - Last Filed: 12/31/24 04:55> Allergies No Known Allergies Allergy (Verified 01/13/24 11:41) Home Medications: NK [No Home Meds] 12/26/24 Review of Systems 10-point ROS is otherwise unremarkable <Kriss Mcpherson - Last Filed: 12/25/24 17:10> Physical Examination - Physical Exam General: Alert, In no apparent distress, Oriented x3 HEENT: Atraumatic, Normocephalic Neck: Supple, 2+ carotid pulse no bruit Respiratory: Clear to auscultation bilaterally, Normal air movement Cardiovascular: Normal pulses, Regular rate/rhythm Capillary refill: <2 Seconds Gastrointestinal: Normal bowel sounds, Soft and benign Musculoskeletal: Other (Right lower extremity diabetic foot ulcer, edema, tenderness to palpitation, pain with weightbearing) Integumentary: Other (Right LLE erythema, diabetic foot ulcer) Neurological: Normal speech, Normal strength at 5/5 x4 extr, Cranial nerves 3-12 intact, Abnormal gait - Studies Laboratory Data (last 24 hrs) 12/25/24 12/25/24 12/25/24 12:35 12:35 12:35 WBC 7.50 Hgb 11.7 L Hct 34.0 L Plt Count 122 L PT 15.2 H INR 1.45 APTT 34.6 Sodium 129 L Potassium 4.2 BUN 11 Creatinine 0.70 Glucose 246 H Total Bilirubin 1.8 H AST 28 ALT 28 Alkaline Phosphatase 109 <Kriss Mcpherson - Last Filed: 12/25/24 17:10> - Studies Microbiology Data (last 24 hrs): 12/25/24 12:35 Blood - Blood Aerobic Blood Culture - Final No growth in 5 days. 12/25/24 12:35 Blood - Blood Anaerobic Blood Culture - Final No growth in 5 days. 12/25/24 12:42 Blood - Blood Aerobic Blood Culture - Final No growth in 5 days. 12/25/24 12:42 Blood - Blood Anaerobic Blood Culture - Final No growth in 5 days. <Ryan Ward - Last Filed: 12/31/24 04:55> Assessment and Plan - Problems (Diagnosis) (1) Osteomyelitis of toe of right foot Current Visit: Yes Status: Acute (2) Ulcer of right foot due to type 2 diabetes mellitus Current Visit: Yes Status: Acute (3) Diabetes mellitus with hyperglycemia Current Visit: Yes Status: Acute Qualifiers: Diabetes mellitus type: type 2 Diabetes mellitus keno terminal operator insulin use: without custodial use Qualified Code(s): E11.65 - Type 2 diabetes mellitus with hyperglycemia (4) Uncontrolled hypertension Current Visit: Yes Status: Acute - Plan Assessment and plan Osteomyelitis of the right lower extremity Right lower extremity diabetic foot ulcer Surgery to consult, n.p.o. for I&D, amputation of the fifth metatarsal bone IV vancomycin, Zosyn, As needed analgesics, antiemetics, PT eval for DME needs Uncontrolled diabetes Accu-Chek ACHS, sliding scale insulin A1c in the a.m. Essential hypertension uncontrolled Telemetry, Resume home antihypertensives Full code DVT SCDs Diet diabetic Disposition Home with home health possible with wound care, IV and Discharge Plan: Home - Advance Directives Does patient have a Living Will: No Does patient have a Durable POA for Healthcare: No - Code Status/Comfort Care Code Status: Full Code Critical Care: No Time Spent Managing Pts Care (In Minutes): 55 <Kriss Mcpherson - Last Filed: 12/25/24 17:10> Date of Service: 12/25/24 Patient was seen and examined. Events of the last 24 hours have been noted. Spoke with with MARGIE regarding patient's clinical picture after evaluating and examining the patient independently. I performed a substantial part of the MDM during this patient's care today. I personally made or approved the documented management plan and acknowledge its risk of complications. I agree with the findings and documentation provided in the MARGIE's notes. Continue with antibiotics. Renal function has slightly worsened. Monitor BUN and creatinine at this time. Nephrology consulted. Arrange for antibiotic therapy at home. <Ryan Ward - Last Filed: 12/31/24 04:55>
[2024-12-25] MEDS ORDERED: MORPHINE 4 MG/ML SYR IV PRN (14:22)
[2024-12-25] MEDS ORDERED: ONDANSETRON 4 MG/2 ML VIAL IV PRN (14:22)
[2024-12-25] MEDS ORDERED: ACETAMINOPHEN 500 MG TAB PO PRN (14:22)
--- NOTE | 2024-12-25 14:50 | P.CNS ---
Date of Consult: 12/25/24 Reason for consult: Right foot infection History of present illness: Patient is a 54-year-old gentleman comes in with approximately 8-day history of infected wound on the right foot. Patient states that he had a ulcer on the bottom of the right foot that he was managing conservatively. Over the last week, he had swelling redness increasing pain and drainage from the wound. Patient also had low-grade fevers. Patient denies any sore throat, runny nose, cough, headaches, dizziness, chest pain fever or chills currently. Patient denies any trauma or injury to the area. Review of systems: Otherwise unremarkable Past medical history: Hypertension and diabetes Past surgical history: Umbilical hernia repair Allergies: None Social history: Patient denies smoking or drinking alcohol Family history: Noncontributory Vital signs: Currently stable, afebrile Physical exam: Awake, alert and oriented x 3 Head and neck exam: No neck masses, no JVD, throat clear and neck supple Chest: Clear Heart: S1-S2 Abdomen: Soft, nondistended, nontender, positive bowel sounds Extremity: Palpable dorsalis pedis and posterior tibial pulses, 2+ and equal bilaterally. The right foot is swollen red with a necrotic ulcer on the dorsum of the lateral foot approximately 4 x 4 cm. Patient's fifth toe has gangrenous changes on the dorsum of the proximal phalanx approximately 3 x 2 cm. On the plantar aspect of the lateral foot there is approximately a 2 cm ulcer surrounded by a large abscess which extends towards the fourth toe and met atarsal bone. There is minimal purulent discharge and foul odor. Neuro: Nonfocal Diagnostic data: White count is normal but the patient has a left shift. X-ray of the right foot reveals gas and osteomyelitis of the fifth metatarsal bone. Arterial Doppler does not show any significant arterial disease. MRI is pending. Assessment: Right foot diabetic infection with osteomyelitis and necrotic gangrenous changes in the patient with diabetes. Plan/recommendation: Admit, n.p.o., IV fluids, IV antibiotics, to the OR for right foot incision, drainage and debridement of a diabetic foot infection and fifth toe transmetatarsal amputation, possible fourth toe amputation as well. Patient understands risk, benefits and alternatives and agrees to procedure. CC:
[2024-12-25] MEDS: VANCOMYCIN 1 GM in NA CHLORIDE 0.9% 250 ML IVPB SCH (15:00)
[2024-12-25] MEDS ORDERED: BUPIVACAINE 0.5% PF 10 ML VIAL ONE (15:17)
[2024-12-25] MEDS: NA CHLORIDE 0.9% 250 ML ONE (15:30)
[2024-12-25] MEDS ORDERED: LIDOCAINE 2% MPF 5 ML VIAL ONE (15:55)
[2024-12-25] MEDS ORDERED: FENTANYL CITR 100 MCG/2 ML ONE (15:55)
[2024-12-25] MEDS ORDERED: propofoL 200 MG/20 ML VIAL IV ONE (15:55)
[2024-12-25] MEDS ORDERED: ONDANSETRON 4 MG/2 ML VIAL ONE (15:55)
[2024-12-25] MEDS ORDERED: dexAMETHasone 4 MG/ML VIAL ONE (15:55)
[2024-12-25] MEDS ORDERED: KETOROLAC 30 MG/ML INJ ONE (15:55)
[2024-12-25] MEDS ORDERED: MIDAZOLAM HCL 2 MG/2 ML INJ ONE (15:55)
--- NOTE | 2024-12-25 16:08 | RAD REPORT ---
EXAM: Foot Right Wo Cont HISTORY: Foot wound COMPARISON: 12/25/2024 TECHNIQUE: Multiplanar multisequence MR images were obtained of the imaged foot without contrast. FINDINGS: Abnormal edema present in the fourth and fifth metatarsal heads as well as both fourth proximal phala nges. There is soft tissue edema. There is an ulceration at the fifth toe along the dorsal aspect.. No abscess identified. IMPRESSION: Findings consistent with osteomyelitis at the fourth and fifth metatarsal heads and likely early oste omyelitis at the fourth and fifth proximal phalanges.
[2024-12-25] MEDS: INSULIN REGULAR (HUMAN) 100 UNIT/ML SQ SCH (16:30)
[2024-12-25] MEDS: NA CHLORIDE 0.9% 1,000 ML ONE (16:35)
[2024-12-25] MEDS: COLLAGENASE 30 GM OINTMENT TOP ONE (17:10)
--- NOTE | 2024-12-25 17:37 | P.OP ---
Date of Service: 12/25/24 Preop diagnosis: Right foot diabetic infection with osteomyelitis of the fourth and fifth toe and metatarsal bones with gas gangrene Postop diagnosis: Same Procedure performed: Transmetatarsal amputation of the right fourth and fifth toe and excisional debridement of infected right foot wound approximately 10 x 8 cm Surgeon: Rupesh Slaughter MD Surgical Clinical Reviewer: None Estimated blood loss: Minimal Specimen: Right fourth and fifth toe, pus, necrotic tissue, infected bone Findings: As above Anesthesia: General Complications: None Drains: None Fluids and blood products: Nonapplicable Disposition: Recovery room Operative note: Patient brought to the OR and placed in supine position. General anesthesia began. Patient prepped and draped in usual sterile fashion. Then sharp dissection utilized to excise the entire necrotic tissue on the dorsum of the foot, the ulcer on the plantar aspect and the fourth and fifth toe. The area of excision was approximately 10 x 8 cm. Patient had gangrenous necrotic tissue on the dorsum of the foot. Dissection proceeded to both metatarsal bones. Bone cutter used to divide both bones. Specimen was removed and sent to pathology. Cultures of the pus and infected tissue as well as the bone was performed. Wound was irrigated and bleeding controlled cautery. Rongeur and rasp was used to smooth out rough edges of the metatarsal bone. Good healthy tissue were seen at the edges of the wound. Patient had adequate circulation clinically. Santyl wet-to-dry normal saline dressing change was applied. Patient tolerated procedure in stable condition and taken to recovery room in good general condition. CC:
[2024-12-25] MEDS: HYDROMORPHONE HCL 1 MG/ML INJ IV PRN (17:50)
[2024-12-25] MEDS: PIPER TAZO 3.375 GM in NA CHLORIDE 0.9% 100 ML IV SCH (20:37)
[2024-12-25] MEDS: HYDROCODONE/APAP 7.5/325 MG TAB PO PRN (21:41)
[2024-12-25] MEDS: VANCOMYCIN 2 GM in NA CHLORIDE 0.9% 500 ML IVPB SCH (22:38)
[2024-12-26] MEDS: NA CHLORIDE 0.9% 1,000 ML IV SCH (01:23)
[2024-12-26] MEDS: ALPRAZOLAM 0.25 MG TABLET PO PRN (01:27)
[2024-12-26 05:22] LABS: Absolute Lymphocytes (CBC) 0.3 K/uL (0.7-4.9); Absolute Monocytes 0.7 K/uL (0.1-1.3); Absolute Neutrophil 6.1 K/uL (1.8-8.0); Basophils % 0.2 % (0-1.3); Eosinophils % 0.1 % (0-4.4); Hematocrit 35.8 % (39.6-49.0); Hemoglobin 11.8 g/dL (13.6-17.9); Lymphocytes % 4.2 % (15.3-44.8); MCH 29.4 pg (27.0-35.0); MCHC 32.8 g/dL (32.0-36.0); MCV 89.7 fL (80-100); MPV 8.7 fL (7.6-11.3); Monocytes % 9.4 % (3.3-12.3); Neutrophils % 86.1 % (41.7-73.7); Platelets 125 thou/uL (152-406); Red Cell Distribution Width 14.7 % (12.1-15.2)
[2024-12-26 06:03] LABS: Albumin 2.2 g/dL (3.4-5.0); Albumin/Globulin Ratio 0.5 (1.1-1.8); Anion Gap 11.9 mEq/L (5.0-15.0); Bilirubin Total 1.3 mg/dL (0.2-1.0); C-Reactive Protein 95.2 mg/L (<3.00); Globulin 4.4 g/dL (2.3-3.5); Magnesium 2.1 mg/dL (1.6-2.4); Phosphorus 5.1 mg/dL (2.5-4.9); Potassium 5.9 mEq/L (3.5-5.1); Protein, Total 6.6 g/dL (6.4-8.2)
[2024-12-26] MEDS ORDERED: BISACODYL E.C. 5 MG TAB PO PRN (09:00)
[2024-12-26 10:05] LABS: Differential Total Cells Count 100
[2024-12-26 10:06] LABS: Band Neutrophils 1 % (0-1); Blood Morphology Comment NOT SEEN (NOT SEEN); Lymphocytes 3 % (15-42); Monocytes 6 % (0-10); Platelet Estimate DECR; Platelets Clumped PRESENT; Segmented Neutrophils 90 % (40-80)
[2024-12-26] MEDS: INSULIN GLARGINE 100 UNIT/ML SQ SCH (10:21)
[2024-12-26] MEDS: Mupirocin NASAL 2 APPL/1 GM TUBE NAS SCH (10:21)
[2024-12-26] MEDS: NA CHLORIDE 0.9% 1,000 ML IV ONE ×2 (11:10→16:07)
[2024-12-26] MEDS: ALBUMIN HUMAN 25% 100 ML IV ONE (11:11)
[2024-12-26] MEDS: Meropenem 1,000 MG in NA CHLORIDE 0.9% 100 ML IV SCH (11:11)
[2024-12-26] MEDS: INSULIN 70/30 100 UNITS/ML SQ ONE ×2 (11:13→15:11)
--- NOTE | 2024-12-26 11:31 | EKG ---
Test Date: 2024-12-25 Test Time: 12:26:04 Stem Roller Operator: JOSE CARLOS MEASUREMENT RESULTS: Intervals: Rate: 94 [place]: 138 QRSD: 92 QT: 360 QTc: 450 [place]: P: 49 [place]: 138 QRS: -20 T: 33 INTERPRETIVE STATEMENTS: Normal sinus rhythm Normal ECG Compared to ECG 01/11/2024 16:25:49 No significant changes Electronically Signed On 12-26-24 11:28:17 WINDOWS ADMIN by Scooby Olmos
[2024-12-26 14:16] LABS: Anion Gap 11.8 mEq/L (5.0-15.0); Potassium 4.8 mEq/L (3.5-5.1)
[2024-12-26] MEDS: INSULIN REGULAR (HUMAN) 100 UNIT/ML SQ SCH (14:30)
[2024-12-26] MEDS ORDERED: D50W 25 GM/50 ML SYRINGE IV PRN (15:07)
[2024-12-26] MEDS ORDERED: GLUCAGON 1 MG/VIAL IM PRN (15:07)
--- NOTE | 2024-12-26 15:10 | PN ---
Date of Progress Note: 12/26/2024 Subjective: The patient is awake, alert. No complaint. Vital signs are stable. He is afebrile. Laboratory Data: Shows white count to be 7.1, there is left shift. His chemistry is significant for sodium of 126, potassium of 5.9, glucose of 448. His BUN and creatinine have gone up to . I discussed these findings with Dr. Ward and he is going to address those issues. Hemoglobin A1c i s 9.6, on the patient. His dressing is clean, dry, intact. Assessment: Status post partial right foot amputation with fourth and fifth transmetatarsal amputati on actually and excisional debridement of a gangrenous wound. Recommendations: Continue IV antibiotics and wound care as ordered. Check cultures and adjust antib iotics accordingly. Medical management for patient's hyponatremia and hyperglycemia. The patient ma y be in DKA. Patient is being evaluated for that and discharge planning after patient is medically c leared. /MODL Voice ID: [id number] Report ID: [id number]
[2024-12-26] MEDS ORDERED: D10W 125 ML IV PRN (15:25)
[2024-12-26] MEDS ORDERED: Meropenem 500 MG in NA CHLORIDE 0.9% 100 ML IV SCH (17:00)
--- NOTE | 2024-12-26 21:42 | RAD REPORT ---
EXAMINATION: ONE VIEW CHEST XR CLINICAL INDICATION: Male, 54 years old.,PICC TECHNIQUE: Frontal chest projection is submitted. Examination is limited by patient positioning and t echnique. COMPARISON: 01/11/2024 FINDINGS: Left arm PICC has been placed with catheter tip at the superior cavoatrial junction. The lungs are mi ldly hypoinflated inflated and clear. No pneumothorax or sizable effusion. The heart is upper limit of normal in size. Mediastinal contours are unremarkable. IMPRESSION: Satisfactory left arm PICC positioning. No acute intrathoracic abnormalities.
--- NOTE | 2024-12-26 22:03 | P.PN ---
Date of Service: 12/26/24 subjective No acute distress noted, Educated on diabetic diet for wound healing. Dietitian consulted Review of Systems 10-point ROS is otherwise unremarkable Physical Examination - Physical Exam Vital signs Reviewed General: Alert, In no apparent distress, Oriented x3, afebrile, no acute distress HEENT: Atraumatic, Normocephalic Neck: Supple, 2+ carotid pulse no bruit Respiratory: Clear to auscultation bilaterally, equal unlabored Cardiovascular: Normal pulses, Regular rate/rhythm Capillary refill: <2 Seconds Gastrointestinal: Normal bowel sounds, Soft and benign Musculoskeletal: Other (Right lower extremity diabetic foot ulcer, edema, tenderness to palpitation, pain with weightbearing) Integumentary: Other (Right LLE erythema, diabetic foot ulcer) Neurological: Normal speech, Normal strength at 5/5 x4 extr, Cranial nerves 3-12 intact, Abnormal gait Assessment and Plan - Problems (Diagnosis) (1) Osteomyelitis of toe of right foot Current Visit: Yes Status: Acute (2) Ulcer of right foot due to type 2 diabetes mellitus Current Visit: Yes Status: Acute (3) Diabetes mellitus with hyperglycemia Current Visit: Yes Status: Acute Qualifiers: Diabetes mellitus type: type 2 Diabetes mellitus parts counterman insulin use: without longterm use Qualified Code(s): E11.65 - Type 2 diabetes mellitus with hyperglycemia (4) Uncontrolled hypertension Current Visit: Yes Status: Acute - Plan Assessment and plan Osteomyelitis of the right lower extremity Right lower extremity diabetic foot ulcer Surgery to consult, n.p.o. for I&D, amputation of the fifth metatarsal bone IV vancomycin, Zosyn,-changed to meropenem As needed analgesics, antiemetics, PT eval for DME needs Blood cultures no growth Wound culture gram-negative rods Anaerobic culture pending gram-negative rods-on meropenem Acute kidney injury likely secondary to vancomycin Pseudohyponatremia likely secondary to hyperglycemia Vancomycin changed to meropenem Trend kidney function, Uncontrolled diabetes Accu-Chek ACHS, sliding scale insulin A1c in the a.m. Patient was refusing insulin today it was discontinued Started on 7030 and Lantus Dietitian consult Essential hypertension uncontrolled Telemetry, Resume home antihypertensives Full code DVT SCDs Diet diabetic Disposition Home with home health possible with wound care, IV and Discharge Plan: Home - Advance Directives Does patient have a Living Will: No Does patient have a Durable POA for Healthcare: No - Code Status/Comfort Care Code Status: Full Code Critical Care: No Time Spent Managing Pts Care (In Minutes): 35 <Kriss Mcpherson - Last Filed: 12/26/24 21:55> Patient was seen and examined. Events of the last 24 hours have been noted. Spoke with with MARGIE regarding patient's clinical picture after evaluating and examining the patient independently. I performed a substantial part of the MDM during this patient's care today. I personally made or approved the documented management plan and acknowledge its risk of complications. I agree with the fi ndings and documentation provided in the MARGIE's notes. Continue with antibiotics. Renal function is worsening. Monitor BUN and creatinine at this time. Nephrology consulted. Will need to change antibiotic regimen. <Ryan Ward - Last Filed: 12/31/24 04:56>
[2024-12-27 05:49] LABS: Absolute Lymphocytes (CBC) 0.6 K/uL (0.7-4.9); Absolute Monocytes 0.7 K/uL (0.1-1.3); Absolute Neutrophil 5.1 K/uL (1.8-8.0); Basophils % 0.3 % (0-1.3); Eosinophils % 0.7 % (0-4.4); Hematocrit 32.6 % (39.6-49.0); Hemoglobin 10.8 g/dL (13.6-17.9); Lymphocytes % 8.8 % (15.3-44.8); MCH 29.2 pg (27.0-35.0); MCV 88.4 fL (80-100); MPV 8.8 fL (7.6-11.3); Monocytes % 10.9 % (3.3-12.3); Neutrophils % 79.3 % (41.7-73.7); Nucleated Red Blood Cells % 0.2 % (0-0); Platelets 135 thou/uL (152-406); RBC Red Blood Cell Count 3.69 M/uL (4.33-5.43); Red Cell Distribution Width 15.1 % (12.1-15.2)
[2024-12-27 06:06] LABS: Albumin 2.1 g/dL (3.4-5.0); Albumin/Globulin Ratio 0.6 (1.1-1.8); Anion Gap 13.8 mEq/L (5.0-15.0); Bilirubin Total 0.6 mg/dL (0.2-1.0); Globulin 3.8 g/dL (2.3-3.5); Magnesium 2.3 mg/dL (1.6-2.4); Potassium 4.8 mEq/L (3.5-5.1); Protein, Total 5.9 g/dL (6.4-8.2)
[2024-12-27] MEDS: NA CHLORIDE 0.9% 1,000 ML IV SCH (06:49)
[2024-12-27] MEDS: INSULIN GLARGINE 100 UNIT/ML SQ SCH (08:18)
[2024-12-27] MEDS ORDERED: VANCOMYCIN 2 GM in NA CHLORIDE 0.9% 500 ML IVPB SCH (09:00)
[2024-12-27] MEDS: SILVER NITRATE 1 APPL TOP ONE (10:38)
--- NOTE | 2024-12-27 11:30 | PN ---
Date of Progress Note: 12/27/2024 Subjective: The patient is awake, alert. No complaint. No fever or chills. Purulent discharge. Objective: Vital Signs: Stable, afebrile. Skin: His wound has markedly decreased erythema, warmth, and edema. It is healing well. There is m oderate amount of fibrin present, which needs serial debridements. However, there is good granulatio n tissue as well. Laboratory Data: White count is normal. Electrolytes are abnormal with sodium of 128, glucose in th e 300, BUN 61, creatinine jumped up to 4.24. Assessment: Status post partial right foot amputation, including the fourth and fifth metatarsal bon es. Recommendation: We will continue the antibiotics. Check the cultures, which are still pending and a djust the antibiotics accordingly. We will start the wound VAC tomorrow for Tuesday, Tuesday, and . The [facility]. Nephrology has been c onsulted to evaluate the patient's kidney functions, and we will await their recommendation. /MODL Voice ID: [id number] Report ID: [id number]
[2024-12-27 15:54] LABS: UR PROTEIN 27.7 mg/dL (<11.9); Urine Protein/Creatinine Ratio 0.84 ratio (<0.15)
--- NOTE | 2024-12-27 16:30 | CON ---
Date of Consultation: 12/27/2024 Reason Of Consultation: Elevated BUN and creatinine and fluid management. History Of Present Illness: This is a pleasant 54-year-old gentleman with significant past medical h istory of diabetes since 2009, no neuropathy, no retinopathy, hypertension, hyperlipidemia. The jay ent came to the hospital complaining from right lower extremity pain. The patient found to have oste omyelitis. Upon arrival to the hospital, the patient had normal creatinine 0.7. Creatinine started trending up. Currently, creatinine 4.2 with GFR of 16. For that reason, we have been consulted. Th e patient received surgery on the . There is no mention for any contrast that the patient receive d. Had MRI only. Reviewing the blood pressure record, the patient did not have any hypotension. Th e patient had a vancomycin level of 30, on the , and again his creatinine on the started risin g to 2.2. The patient denied taking any nonsteroidal. Denied any rashes. No MADYSON inhibitor. Past Medical History: Includes: 1. Diabetes. 2. Hypertension. 3. Osteomyelitis. Past Surgical History: Include hernia repair. Home Medications: Include losartan, lovastatin, glipizide, and the hydrocodone. Family History: Positive for diabetes and hypertension. Social History: Active alcohol. Denied smoking. Denied drugs abuse. Review of Systems: Head and Neck: No red eye. No ear pain. GI: No nausea. No vomiting. : No polyuria. No dysuria. No hematuria. RADIATION / CHEMISTRY TECHNICIAN: Not applicable. Respiratory: No shortness of breath. No orthopnea. Endocrine: No polydipsia. Skin: No rash. Neuro: No neuropathy. Musculoskeletal: Has foot pain. Physical Examination: General: When I saw the patient, the patient lying in bed, comfortable. Vital Signs: Blood pressure 176/76, pulse of 83, afebrile. Chest: Clear to auscultation. Heart: S1, S2. Regular. Abdomen: Soft, nontender. Extremities: No edema. Dressing on the right foot. Laboratory Data: On the , sodium 129, potassium 4.2, bicarb 25, BUN 11, creatinine 0.7, calcium 8 .5, albumin 2.5, corrected calcium is 9.7. WBC 7.5, hemoglobin 11.7. Latest lab data today; sodium 128, potassium 4.8, bicarb 22, BUN 61, creatinine 4.2, glucose 367, calcium 7.1, GFR of 16. Albumin 2.1, corrected calcium is 8.6. Urinalysis: Negative for infection. Vancomycin trough of 30. Chest x-ray: Cardiomegaly, marginal congestion. Assessment And Plan: 1. Acute kidney injury secondary to toxic acute tubular necrosis, secondary to osteomyelitis, superim posed with vancomycin toxicity, to rule out obstructive uropathy, given the nocturia. a. I am going to start the patient on hydration. b. I agree with holding the vancomycin. We will follow up vancomycin trough. c. We will send for full workup for the patient and we will follow up. d. Avoid any MADYSON inhibitor or ARB. 2. Hypertension, not controlled. We will start the patient on beta-barron. Start hydration. 3. Osteomyelitis secondary to diabetic foot. Culture negative. I agree with holding vancomycin. We will decrease meropenem to 500, and we will follow up. 4. Diabetes, as by Primary. 5. Hyponatremia secondary to renal failure. We will start IV hydration and we will follow up. Thank you for allowing us to participate in the care of your patient. NAYELI Voice ID: [id number] Report ID: [id number]
--- NOTE | 2024-12-27 18:15 | RAD REPORT ---
EXAMINATION: US RETROPERITONEUM CLINICAL INDICATION: RUST MAIN SIMONE TECHNIQUE: Real-time ultrasonography of the abdomen was performed. COMPARISON: No prior exam. FINDINGS: RIGHT KIDNEY: Right renal length measurement: 14.0 cm. Mildly increased cortical echogenicity. Normal size. No calculus, solid mass or hydronephrosis. LEFT KIDNEY: Left renal length measurement: 12.8 cm. Mildly increased cortical echogenicity. Normal s ize. No calculus, solid mass or hydronephrosis. URINARY BLADDER: Normal. ADDITIONAL FINDINGS: None. IMPRESSION: Bilateral mildly increased cortical echogenicity suggesting medical renal disease.
[2024-12-27] MEDS: Meropenem 500 MG in NA CHLORIDE 0.9% 100 ML IV SCH (20:54)
[2024-12-28 00:07] LABS: Specific Gravity 1.006 (1.005-1.030); Sqamous Epithelial None Seen /HPF (None Seen); UR SODIUM 35 mmol/L (27-287); Urine Bacteria <20 /HPF (<20); Urine Bilirubin NEGATIVE (Negative); Urine Blood Trace (Negative); Urine Clarity Clear (Clear); Urine Color Colorless (Yellow); Urine Culture Reflex Order NOT NEEDED; Urine Glucose NEGATIVE (Negative); Urine Ketones NEGATIVE (Negative); Urine Microscopic Reflex YN ORDER UMIC; Urine Nitrite NEGATIVE (Negative); Urine Protein TRACE (Negative); Urine RBC <5 /HPF (None Seen); Urine Urobilinogen Normal (Normal); Urine WBC <5 /HPF (<5)
[2024-12-28 00:09] LABS: UR POTASSIUM < 6.0 mmol/L (20-40)
[2024-12-28 04:59] LABS: Absolute Eosinophils 0.1 K/uL (0-0.5); Absolute Lymphocytes (CBC) 0.8 K/uL (0.7-4.9); Absolute Monocytes 0.8 K/uL (0.1-1.3); Absolute Neutrophil 4.7 K/uL (1.8-8.0); Basophils % 0.5 % (0-1.3); Eosinophils % 1.3 % (0-4.4); Hematocrit 33.6 % (39.6-49.0); Hemoglobin 11.3 g/dL (13.6-17.9); Lymphocytes % 12.7 % (15.3-44.8); MCH 29.5 pg (27.0-35.0); MCHC 33.6 g/dL (32.0-36.0); MCV 87.7 fL (80-100); MPV 8.4 fL (7.6-11.3); Neutrophils % 73.5 % (41.7-73.7); Percent Reticulocyte Count 1.02 % (0.4-2.05); Platelets 131 thou/uL (152-406); RBC Red Blood Cell Count 3.82 M/uL (4.33-5.43)
[2024-12-28 05:57] LABS: Albumin 2.1 g/dL (3.4-5.0); Anion Gap 15.8 mEq/L (5.0-15.0); BUN Blood Urea Nitrogen 71 mg/dL (7-18); Bicarbonate 21 mEq/L (21-32); Creatine Phosphokinase 44 U/L (39-308); Ferritin 97.9 ng/mL (26-388); Glomerular Filtration Rate 13 ml/min (=/>90); Glucose Level 189 mg/dL (74-106); Phosphorus 6.5 mg/dL (2.5-4.9); Potassium 4.8 mEq/L (3.5-5.1); Sodium Level 134 mEq/L (136-145); Transferrin 156 mg/dL (200-360); Uric Acid 5.6 mg/dL (3.5-7.2)
[2024-12-28 07:42] LABS: Rheumatoid Factor NEG (NEG)
[2024-12-28] MEDS: COLLAGENASE 30 GM OINTMENT TOP SCH (09:32)
--- NOTE | 2024-12-28 19:20 | P.PN ---
Date of Service: 12/27/24 subjective Worsening renal function, nephrology consulted, patient is voiding, Family at bedside Educated on diabetes, diabetic diet, Patient ambulating without any DME, weightbearing on heel. Review of Systems 10-point ROS is otherwise unremarkable Physical Examination - Physical Exam Vital signs Reviewed General: Alert, In no apparent distress, Oriented x3, afebrile HEENT: Atraumatic, Normocephalic Neck: Supple, 2+ carotid pulse no bruit Respiratory: Clear to auscultation bilaterally, equal unlabored Cardiovascular: Normal pulses, Regular rate/rhythm Capillary refill: <2 Seconds Gastrointestinal: Normal bowel sounds, Soft and benign Musculoskeletal: Other (Right lower extremity diabetic foot ulcer, surgical dressing intact. Integumentary: Other (Right LLE erythema, diabetic foot ulcer) Neurological: Normal speech, Normal strength at 5/5 x4 extr, Cranial nerves 3-12 intact, Abnormal gait Assessment and Plan - Problems (Diagnosis) (1) Osteomyelitis of toe of right foot Current Visit: Yes Status: Acute (2) Ulcer of right foot due to type 2 diabetes mellitus Current Visit: Yes Status: Acute (3) Diabetes mellitus with hyperglycemia Current Visit: Yes Status: Acute Qualifiers: Diabetes mellitus type: type 2 Diabetes mellitus penitentiary insulin use: without penitentiary use Qualified Code(s): E11.65 - Type 2 diabetes mellitus with hyperglycemia (4) Uncontrolled hypertension Current Visit: Yes Status: Acute - Plan Assessment and plan Osteomyelitis of the right lower extremity Right lower extremity diabetic foot ulcer Surgery to consult, n.p.o. for I&D, amputation of the fifth metatarsal bone IV vancomycin, Zosyn,-changed to meropenem As needed analgesics, antiemetics, PT eval for DME needs Blood cultures no growth Wound culture gram-negative rods-Morganella Morganii, MSRS resistant Staph aureus (on meropenem) Anaerobic culture pending gram-negative rods-on meropenem PICC line for 6 weeks of antibiotic Wound care by wound care center Dr. Slaughter Acute kidney injury likely secondary to vancomycin/ Pseudohyponatremia likely secondary to hyperglycemia Vancomycin changed to meropenem Trend kidney function, Uncontrolled diabetes Accu-Chek ACHS, sliding scale insulin A1c in the a.m. Patient was refusing insulin today it was discontinued Started on 7030 and Lantus Dietitian consult Essential hypertension uncontrolled Telemetry, Resume home antihypertensives Full code DVT SCDs Diet diabetic Disposition Home with home health possible with wound care, IV and Discharge Plan: Home - Advance Directives Does patient have a Living Will: No Does patient have a Durable POA for Healthcare: No - Code Status/Comfort Care Code Status: Full Code Critical Care: No Time Spent Managing Pts Care (In Minutes): 35 <Kriss Mcpherson - Last Filed: 12/28/24 19:21> Patient was seen and examined. Events of the last 24 hours have been noted. Spoke with with MARGIE regarding patient's clinical picture after evaluating and examining the patient independently. I performed a substantial part of the MDM during this patient's care today. I personally made or approved the documented management plan and acknowledge its risk of complications. I agree with the findings and documentation provided in the MARGIE's notes. Patient on antibiotic for osteomyelitis. Patient renal function is worsening. Continue antibiotic therapy and continue monitoring renal function closely. <Ryan Ward - Last Filed: 12/31/24 04:59>
--- NOTE | 2024-12-28 21:47 | PN ---
Date of Progress Note: 12/28/2024 Subjective: No overnight event. Creatinine up to 5.1. Nonoliguric. Serology workup so far negativ e. Objective: Vital Signs: Pulse rate 16, temperature 98.1, pulse ox 94, blood pressure 157/71. General: Awake, alert, oriented x3, not in distress. Neck: Supple. No elevated JVD. Heart: Regular rate rhythm. Normal S1, S2. Chest: Clear to auscultation bilaterally. No rales or wheezes. Abdomen: Soft, nontender. Extremities: No edema. Laboratory Data: Sodium 134, potassium 4.8, BUN 71, creatinine 5.8. The patient was admitted for diabetic foot ulcer. Creatinine 0.7 on admission. The patient __ level was up to 30. The patient had acute kidney injury, creatinine 5.1. Assessment And Plan: 1. Acute kidney injury, likely due to vancomycin toxicity. Creatinine up to 5.8. Nonoliguric. We wi ll continue to monitor renal function. I discussed with the patient that if creatinine continue to i ncrease by Tuesday, then he might require renal replacement therapy. Continue to hold vancomycin and renally dose medication. Avoid NSAID and contrast. 2. Diabetic foot ulcer. Continue wound care and antibiotics. 3. Diabetes mellitus. Continue insulin. 4. Anemia of chronic disease, mild. Monitor H and H and transfuse if hemoglobin less than 7. Thanks for allowing me to participate in patient's care. Total time spent 55 minutes including docum entation, reviewing labs, and placing orders. GLENIS/CANDICE Voice ID: [id number] Report ID: [id number]
[2024-12-29 04:57] LABS: Absolute Eosinophils 0.1 K/uL (0-0.5); Absolute Lymphocytes (CBC) 0.8 K/uL (0.7-4.9); Absolute Monocytes 0.6 K/uL (0.1-1.3); Absolute Neutrophil 3.3 K/uL (1.8-8.0); Basophils % 0.6 % (0-1.3); Eosinophils % 2.3 % (0-4.4); Hematocrit 32.7 % (39.6-49.0); Hemoglobin 10.9 g/dL (13.6-17.9); Lymphocytes % 16.9 % (15.3-44.8); MCH 29.1 pg (27.0-35.0); MCHC 33.4 g/dL (32.0-36.0); MCV 86.9 fL (80-100); MPV 8.6 fL (7.6-11.3); Monocytes % 13.1 % (3.3-12.3); Neutrophils % 67.1 % (41.7-73.7); Nucleated Red Blood Cells % 0.1 % (0-0); Platelets 113 thou/uL (152-406); RBC Red Blood Cell Count 3.76 M/uL (4.33-5.43); Red Cell Distribution Width 15.1 % (12.1-15.2)
[2024-12-29 06:07] LABS: Anion Gap 12.8 mEq/L (5.0-15.0); Phosphorus 6.5 mg/dL (2.5-4.9); Potassium 4.8 mEq/L (3.5-5.1)
[2024-12-29] MEDS: ALBUMIN HUMAN 25% 100 ML IV ONE (06:43)
[2024-12-29] MEDS: SODIUM BICARB 50 MEQ/50ML VIAL ONE (07:18)
[2024-12-29] MEDS: NACHLORIDE 0.45% 1,000 ML with NA BICARB 8.4% 50 MEQ IV SCH ×2 (08:21→20:48)
[2024-12-29] MEDS ORDERED: HYDRALAZINE HCL 25 MG TABLET PO PRN (12:21)
[2024-12-29] MEDS: HYDRALAZINE HCL 20 MG/ML VIAL IV ONE (13:11)
[2024-12-29 18:53] LABS: Anion Gap 15.7 mEq/L (5.0-15.0); Potassium 4.7 mEq/L (3.5-5.1)
--- NOTE | 2024-12-29 19:42 | PN ---
Date of Progress Note: 12/29/2024 Subjective: The patient was admitted with infected foot. The patient had acute kidney injury second nitin to vancomycin toxicity. The patient nonoliguric. Physical Examination: Vital Signs: Blood pressure 192/79, pulse of 89, afebrile. Chest: Crackles bilateral base. Heart: S1, S2 regular. Abdomen: Soft, nontender. Extremities: Trace edema. Has dressing on the right foot. Laboratory Data: WBC 4.9, hemoglobin 10.9. Sodium 132, potassium 4.8, bicarb 19, BUN 77, creatinine 5.4. Calcium 7.2, phosphorus 6.5. Albumin 2. Corrected calcium 8.4. Serum protein electrophoresi s still pending. PC ratio 0.8. Serology still pending. Current Medications: The patient on include: 1. Meropenem. 2. Hydralazine 25 t.i.d. 3. Bicarb drip. Assessment And Plan: 1. Acute kidney injury secondary to ATN secondary to vancomycin toxicity, nonoliguric, no hyperkalemi a, slightly on the over-volume side with polyuria. I am going to go ahead and decrease IV fluid to 5 0 per hour and we will continue to monitor the patient. Keep holding vancomycin. I had long discuss ion with the patient that if kidney function continued to decline, the patient may need renal replace ment therapy. The patient in agreement. We will follow up. 2. Hypertension. Currently blood pressure not controlled. I am going to go ahead and increase the p atient's hydralazine to 50 t.i.d. as scheduled and we will add beta-barron for the patient and we wi ll follow up. Avoid MADYSON inhibitor or ARB. 3. Foot infection. We will follow up with primary. Continue current antibiotic, dose appropriate. 4. Diabetes, as by primary. NIKOLAS/CANDICE Voice ID: [id number] Report ID: [id number]
--- NOTE | 2024-12-29 20:12 | P.PN ---
Date of Service: 12/29/24 subjective Voiding, nephrology following for acute renal insufficiency, Review of Systems 10-point ROS is otherwise unremarkable Physical Examination Vital signs Reviewed General: Alert, In no apparent distress, Oriented x3, HEENT: supple, Neck: Supple, Respiratory: Clear to auscultation bilaterally, Cardiovascular: Normal pulses, Regular rate/rhythm Capillary refill: <2 Seconds Gastrointestinal: Normal bowel sounds, nontender Musculoskeletal: Other (Right lower extremity diabetic foot ulcer, surgical dressing intact. Integumentary: Other (Right LLE erythema, diabetic foot ulcer) Neurological: Normal speech, Normal strength at 5/5 x4 extr, Abnormal gait Assessment and Plan - Problems (Diagnosis) (1) Osteomyelitis of toe of right foot Current Visit: Yes Status: Acute (2) Ulcer of right foot due to type 2 diabetes mellitus Current Visit: Yes Status: Acute (3) Diabetes mellitus with hyperglycemia Current Visit: Yes Status: Acute Qualifiers: Diabetes mellitus type: type 2 Diabetes mellitus termite treater insulin use: without termite treater use Qualified Code(s): E11.65 - Type 2 diabetes mellitus with hyperglycemia (4) Uncontrolled hypertension Current Visit: Yes Status: Acute - Plan Assessment and plan Osteomyelitis of the right lower extremity Right lower extremity diabetic foot ulcer amputation of the fifth metatarsal bone Surgery to consult for I&D, IV vancomycin, Zosyn,-changed to meropenem renally dosed As needed analgesics, antiemetics, PT eval for DME needs Blood cultures no growth Wound culture gram-negative rods-Morganella Morganii, MSRS resistant Staph aureus (on meropenem) Anaerobic culture pending gram-negative rods-on meropenem PICC line for 6 weeks of antibiotic Wound care by wound care center Dr. Slaughter Acute kidney injury likely secondary to vancomycin/ Pseudohyponatremia likely secondary to hyperglycemia Vancomycin changed to meropenem renally dosed Trend kidney function, Uncontrolled diabetes Accu-Chek ACHS, sliding scale insulin A1c in the a.m. Patient was refusing insulin today it was discontinued Started on 7030 and Lantus (patient has been refusing insulin) Educated on diabetic diet Dietitian consult Essential hypertension uncontrolled Telemetry, Resume home antihypertensives Full code DVT SCDs Diet diabetic Disposition Home with home health possible with wound care, IV and Discharge Plan: Home - Advance Directives Does patient have a Living Will: No Does patient have a Durable POA for Healthcare: No - Code Status/Comfort Care Code Status: Full Code Critical Care: No Time Spent Managing Pts Care (In Minutes): 30 <Kriss Mcpherosn - Last Filed: 12/29/24 20:07> Patient was seen and examined. Events of the last 24 hours have been noted. Spoke with with MARGIE regarding patient's clinical picture after evaluating and examining the patient independently. I performed a substantial part of the MDM during this patient's care today. I personally made or approved the documented management plan and acknowledge its risk of complications. I agree with the findings and documentation provided in the MARGIE's notes. Patient is doing better. Renal function is stable. It appears to be plateauing. Appreciate Nephrology assistance in patient's care. <Ryan Ward - Last Filed: 12/31/24 04:58>
--- NOTE | 2024-12-29 20:15 | P.PN ---
Date of Service: 12/28/24 subjective Afebrile, pain controlled with as needed analgesia Reports bowel movement Review of Systems 10-point ROS is otherwise unremarkable Physical Examination Vital signs Reviewed General: Alert, afebrile HEENT: supple, Neck: Supple, Respiratory: Clear to auscultation bilaterally, unlabored Cardiovascular: Normal pulses, regular rate and rhythm Capillary refill: <2 Seconds Gastrointestinal: Normal bowel sounds, nontender Musculoskeletal: Other (Right lower extremity diabetic foot ulcer, surgical dressing intact. Integumentary: Other (Right LLE erythema, diabetic foot ulcer) Neurological: Normal speech, Normal strength at 5/5 x4 extr, Assessment and Plan - Problems (Diagnosis) (1) Osteomyelitis of toe of right foot Current Visit: Yes Status: Acute (2) Ulcer of right foot due to type 2 diabetes mellitus Current Visit: Yes Status: Acute (3) Diabetes mellitus with hyperglycemia Current Visit: Yes Status: Acute Qualifiers: Diabetes mellitus type: type 2 Diabetes mellitus manager intermediate insulin use: without halfway use Qualified Code(s): E11.65 - Type 2 diabetes mellitus with hyperglycemia (4) Uncontrolled hypertension Current Visit: Yes Status: Acute - Plan Assessment and plan Osteomyelitis of the right lower extremity Right lower extremity diabetic foot ulcer amputation of the fifth metatarsal bone Surgery to consult for I&D, IV vancomycin, Zosyn,-changed to meropenem renally dosed As needed analgesics, antiemetics, PT eval for DME needs Blood cultures no growth Wound culture gram-negative rods-Morganella Morganii, MSRS resistant Staph aureus (on meropenem) Anaerobic culture pending gram-negative rods-on meropenem PICC line for 6 weeks of antibiotic Wound care by wound care center Dr. Slaughter Acute kidney injury likely secondary to vancomycin/ Pseudohyponatremia likely secondary to hyperglycemia Vancomycin changed to meropenem renally dosed Trend kidney function, Uncontrolled diabetes Accu-Chek ACHS, sliding scale insulin A1c in the a.m. Patient was refusing insulin today it was discontinued Started on 7030 and Lantus (patient has been refusing insulin) Educated on diabetic diet Dietitian consult Essential hypertension uncontrolled Telemetry, Resume home antihypertensives Full code DVT SCDs Diet diabetic Disposition Home with home health possible with wound care, IV and Discharge Plan: Home - Advance Directives Does patient have a Living Will: No Does patient have a Durable POA for Healthcare: No - Code Status/Comfort Care Code Status: Full Code Critical Care: No Time Spent Managing Pts Care (In Minutes): 25 <Kriss Mcpherson - Last Filed: 12/29/24 20:15> Patient was seen and examined. Events of the last 24 hours have been noted. Spoke with with MARGIE regarding patient's clinical picture after evaluating and examining the patient independently. I performed a substantial part of the MDM during this patient's care today. I personally made or approved the documented management plan and acknowledge its risk of complications. I agree with the find ings and documentation provided in the MARGIE's notes. Patient continues to worsen. Patient's renal function will be continued to be monitored. Appreciate Nephrology guidance consultant. If worsen may need hemodialysis. Arrange for outpatient antibiotic therapy. <Ryan Ward - Last Filed: 12/31/24 04:58>
[2024-12-29] MEDS: HYDRALAZINE HCL 25 MG TABLET PO SCH (20:34)
[2024-12-29] MEDS: carvediloL 6.25 MG TAB PO SCH (20:34)
[2024-12-30 05:53] LABS: Albumin 2.1 g/dL (3.4-5.0); Anion Gap 13.5 mEq/L (5.0-15.0); Phosphorus 5.7 mg/dL (2.5-4.9); Potassium 4.5 mEq/L (3.5-5.1)
[2024-12-30] MEDS: HYDRALAZINE HCL 25 MG TABLET PO SCH (13:53)
--- NOTE | 2024-12-30 15:27 | P.PN ---
Date of Service: 12/30/24 subjective Afebrile, pain controlled with as needed analgesia Reports bowel movement Review of Systems 10-point ROS is otherwise unremarkable Physical Examination Vital signs Reviewed General: Alert, afebrile HEENT: supple, Neck: Supple, Respiratory: respirations Equal, unlabored Cardiovascular: Normal pulses, regular rate and rhythm Capillary refill: <2 Seconds Gastrointestinal: Normal bowel sounds, nontender Musculoskeletal: Other (Right lower extremity diabetic foot ulcer, surgical dressing intact. Integumentary: Other (Right LLE erythema, diabetic foot ulcer) Neurological: Normal speech, Normal strength at 5/5 x4 extr, Assessment and Plan - Problems (Diagnosis) (1) Osteomyelitis of toe of right foot Current Visit: Yes Status: Acute (2) Ulcer of right foot due to type 2 diabetes mellitus Current Visit: Yes Status: Acute (3) Diabetes mellitus with hyperglycemia Current Visit: Yes Status: Acute Qualifiers: Diabetes mellitus type: type 2 Diabetes mellitus retirement insulin use: without vermin exterminator use Qualified Code(s): E11.65 - Type 2 diabetes mellitus with hyperglycemia (4) Uncontrolled hypertension Current Visit: Yes Status: Acute - Plan Assessment and plan Osteomyelitis of the right lower extremity Right lower extremity diabetic foot ulcer amputation of the fifth metatarsal bone Surgery to consult for I&D, IV vancomycin, Zosyn,-changed to meropenem renally dosed As needed analgesics, antiemetics, PT eval for DME needs Blood cultures no growth Wound culture gram-negative rods-Morganella Morganii, MSRS resistant Staph aureus (on meropenem) Anaerobic culture pending gram-negative rods-on meropenem PICC line for 6 weeks of antibiotic Wound care by wound care center Dr. Slaughter Plan for wound vac with Dr. Slaughter prior to the discharge Acute kidney injury likely secondary to ATN vancomycin Vancomycin changed to meropenem renally dosed Trend kidney function, nephrology consulted Avoid nephrotoxic medication Pseudohyponatremia likely secondary to hyperglycemia refuses insulin at times educated on DM diet, insulin, Uncontrolled diabetes Accu-Chek ACHS, sliding scale insulin A1c in the a.m. Patient was refusing insulin today it was discontinued Started on 7030 and Lantus (patient has been refusing insulin) Educated on diabetic diet Dietitian consult Essential hypertension uncontrolled Telemetry, Resume home antihypertensives Full code DVT SCDs Diet diabetic Disposition Home with home health possible with wound care, IV and Discharge Plan: Home - Advance Directives Does patient have a Living Will: No Does patient have a Durable POA for Healthcare: No - Code Status/Comfort Care Code Status: Full Code Critical Care: No Time Spent Managing Pts Care (In Minutes): 25 <Kriss Mcpherson - Last Filed: 12/30/24 15:22> Patient was seen and examined. Events of the last 24 hours have been noted. Spoke with with MARGIE regarding patient's clinical picture after evaluating and examining the patient independently. I performed a substantial part of the MDM during this patient's care today. I personally made or approved the documented management plan and acknowledge its risk of complications. I agree with the f indings and documentation provided in the MARGIE's notes. Patient renal function is starting to improve. Appreciate Nephrology assistance. If it continues to improve and hopefully we can avoid hemodialysis. <Ryan Ward - Last Filed: 12/31/24 04:56>
[2024-12-30] MEDS: FUROSEMIDE 40 MG TABLET PO ONE (17:47)
[2024-12-30] MEDS: SODIUM BICARB 325 MG TAB PO SCH (20:23)
--- NOTE | 2024-12-30 22:37 | PN ---
Date of Progress Note: 12/30/2024 Subjective: The patient was admitted to the hospital with foot infection. The patient had acute kid ryder injury secondary to vancomycin toxicity. The patient is nonoliguric. Physical Examination: Vital Signs: When I saw the patient, blood pressure 146/73, pulse of 84, afebrile. The patient had good urine output of 4 L. Chest: Faint rales bilateral. Heart: S1, S2. Regular. Abdomen: Soft, nontender, morbidly obese. Could not appreciate any organomegaly. Extremities: Dressing on the right foot, +1 edema. Neurologic: Alert. No focality. No tremor. Laboratory Data: WBC 4.9, hemoglobin 10.9. Sodium 131; potassium 4.5; bicarb 19; BUN 77; creatinine 5, trending down; GFR of 13. Calcium 7.5, phosphorus 5.7, albumin 2.1, corrected calcium is 9.1. Current Medications: The patient is on include: 1. IV fluid. 2. Meropenem. 3. Carvedilol 6.25. 4. Hydralazine 25 t.i.d. 5. Mupirocin. Assessment And Plan: 1. Acute kidney injury secondary to vancomycin toxicity, on the plateau. No uremic symptoms. No hyp erkalemia or acidosis. I am going to go ahead and discontinue IV fluid. I do not see the need to in itiate renal replacement therapy. I am going to give single dose of Lasix, and we will follow up the patient. 2. Hypertension, controlled, optimal. Continue current treatment. We will give Lasix. 3. Hyponatremia, dilutional. Discontinue IV fluid. We will give Lasix. 4. Acidosis. I will start the patient on oral bicarb. Discontinue bicarb drip. 5. Foot infection, osteomyelitis. Continue current treatment. We will keep avoiding any vancomycin. MA/MODL Voice ID: [id number] Report ID: [id number]
[2024-12-31 06:11] LABS: Albumin 2.2 g/dL (3.4-5.0); Anion Gap 12.5 mEq/L (5.0-15.0); Phosphorus 6.5 mg/dL (2.5-4.9); Potassium 4.5 mEq/L (3.5-5.1)
[2024-12-31] MEDS: carvediloL 6.25 MG TAB PO SCH (08:17)
--- NOTE | 2024-12-31 09:34 | P.PN ---
Date of Service: 12/31/24 subjective Afebrile, no complaints, creatinine trending down Review of Systems 10-point ROS is otherwise unremarkable Physical Examination Vital signs Reviewed, no concerning findings, output remains good. 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) Integumentary: vitiligo to bilateral lower ext Neurological: Normal speech, Normal strength at 5/5 x4 extr, Assessment and Plan - Problems (Diagnosis) (1) Osteomyelitis of toe of right foot Current Visit: Yes Status: Acute (2) Ulcer of right foot due to type 2 diabetes mellitus Current Visit: Yes Status: Acute (3) Diabetes mellitus with hyperglycemia Current Visit: Yes Status: Acute Qualifiers: Diabetes mellitus type: type 2 Diabetes mellitus back sizer insulin use: without long-term use Qualified Code(s): E11.65 - Type 2 diabetes mellitus with hyperglycemia (4) Uncontrolled hypertension Current Visit: Yes Status: Acute - Plan Assessment and plan Osteomyelitis of the right lower extremity Right lower extremity diabetic foot ulcer amputation of the fifth metatarsal bone Surgery to consult for I&D, IV vancomycin, Zosyn,-changed to meropenem renally dosed As needed analgesics, antiemetics, PT eval for DME needs Blood cultures no growth Wound culture gram-negative rods-Morganella Morganii, MSRS resistant Staph aureus (on meropenem) Anaerobic culture pending gram-negative rods-on meropenem PICC line for 6 weeks of antibiotic Wound care by wound care center Dr. Slaughter Plan for wound vac with Dr. Slaughter prior to the discharge 12/31/24 - Dr. Slaughter following Acute kidney injury likely secondary to ATN vancomycin Vancomycin changed to meropenem renally dosed Trend kidney function, nephrology consulted Avoid nephrotoxic medication 12/31/24 - Dr. Medina following - creatinine improving today at 4.58, GFR 15 Uncontrolled diabetes Accu-Chek ACHS Started on 70/30 and Lantus (patient has been refusing insulin) Educated on diabetic diet Dietitian consult 12/31/24 - A1c 9.6, FSBG has improved over the past few days. continue Semglee as ordered Essential hypertension uncontrolled Telemetry, Resume home antihypertensives 12/31/24 - pt is on Coreg 6.25mg po BID and Hydralazine 25mg po TID, BP this am at target Full code DVT SCDs Diet diabetic Disposition Home with home health possible with wound care and wound vac with nephrology followup Discharge Plan: Home - Advance Directives Does patient have a Living Will: No Does patient have a Durable POA for Healthcare: No - Code Status/Comfort Care Code Status: Full Code Critical Care: No
[2024-12-31] MEDS: CIPROFLOXACIN HCL 500 MG TAB PO SCH (14:02)
[2024-12-31 20:39] LABS: Complement C3 52 mg/dL (82-185)
--- NOTE | 2025-01-01 02:34 | PN ---
Date of Progress Note: 12/31/2024 Chief Complaint: Acute kidney injury. Subjective: The patient came to the hospital because of wound infection. He has foot infection and he is on broad-spectrum antibiotics. He was found to have acute kidney injury secondary to vancomyci n toxicity. He has nonoliguric urine output, but there is no hematuria or dysuria. Review of Systems: Denies fever, chills. Physical Examination: Lungs: Clear to auscultation bilaterally. Heart: S1, S2. Abdomen: Soft, benign. Extremities: 1+ edema. Neurologic: No focality. No tremor. Laboratory Data: Sodium 141, potassium 4.5, BUN is 77, creatinine 5, bicarb of 19, GFR of 13, calciu m 7.5, albumin 2.1, corrected calcium 9.1. Impression: 1. Acute kidney injury secondary to vancomycin toxicity. Renal function is plateauing met abolic acidosis. IV fluids were used for acute kidney injury. The patient developed sing le dose of Lasix. 2. Hypertension. Blood pressure controlled, optimal. Continue Lasix according to volemia status. 3. Hyponatremia, dilutional. Continue Lasix. 4. Acidosis. The patient on sodium bicarbonate tablets. 5. Foot infection, osteomyelitis. Vancomycin on hold due to acute kidney injury. EB/MODL Voice ID: [id number] Report ID: [id number]
[2025-01-01 05:54] LABS: Albumin 2.2 g/dL (3.4-5.0); Anion Gap 11.5 mEq/L (5.0-15.0); Potassium 4.5 mEq/L (3.5-5.1)
[2025-01-01 07:00] VITALS: BMI 4823.4
[2025-01-01 07:22] LABS: Anti-Double Strand DNA Antibod 1 IU/mL (<=4)
[2025-01-01 12:11] VITALS: O2SAT 96
[2025-01-01 14:16] VITALS: BP 160/76; TEMP 97.9
[2025-01-01 15:12] LABS: Abnormal Protein Band 1 REPORT; Albumin, (SPE) 2.6 g/dL (3.8-4.8); Alpha-1-Globulins 0.3 g/dL (0.2-0.3); Alpha-2-Globulins 0.5 g/dL (0.5-0.9); Beta 1 Globulin 0.4 g/dL (0.4-0.6); Gamma Globulins 1.5 g/dL (0.8-1.7); INTERPRETATION REPORT; Total Protein 5.7 g/dL (6.1-8.1)
[2025-01-01 22:51] LABS: C-ANCA Anti-Proteinase 3 <1.0 AI (<1.0); P-ANCA Anti-Myeloperoxidase Ab <1.0 AI (<1.0)
[2025-01-02 18:33] LABS: Anti-Nuclear Antibody Screen Positive (Negative)
[2025-01-02 19:03] LABS: Anti-Nuclear Antibody Pattern REPORT; Anti-Nuclear Antibody Titer 1:40 (Negative)
== END 2025-01-01 15:58 | disposition home or self-care (01) | DRG 616 ==
LOC: ER 11:03 → ERHOLD 14:13 → EEVIPCON 14:13 → 2ND 16:55
PROVIDERS: ADMIT Hospitalist; ATTEND Internal Medicine
PROC: 0Y6X0Z0 Detachment at Right 5th Toe, Complete, Open Approach (ICD-10-PCS; 2024-12-25)
PROC: 0Y6V0Z0 Detachment at Right 4th Toe, Complete, Open Approach (ICD-10-PCS; principal; 2024-12-25 15:30)
PROC: 02HV33Z Insertion of Infusion Device into Superior Vena Cava, Percutaneous Approach (ICD-10-PCS; 2024-12-26)
DX: E11.69 Type 2 diabetes mellitus with other specified complication (principal); A48.0 Gas gangrene; E11.52 Type 2 diabetes mellitus with diabetic peripheral angiopathy with gangrene; M86.171 Other acute osteomyelitis, right ankle and foot; E87.1 Hypo-osmolality and hyponatremia; E11.621 Type 2 diabetes mellitus with foot ulcer; L97.519 Non-pressure chronic ulcer of other part of right foot with unspecified severity; E11.65 Type 2 diabetes mellitus with hyperglycemia; N17.0 Acute kidney failure with tubular necrosis; I10 Essential (primary) hypertension; E88.09 Other disorders of plasma-protein metabolism, not elsewhere classified; D63.8 Anemia in other chronic diseases classified elsewhere; D50.9 Iron deficiency anemia, unspecified; B95.62 Methicillin resistant Staphylococcus aureus infection as the cause of diseases classified elsewhere; T36.8X5A Adverse effect of other systemic antibiotics, initial encounter
CPT/HCPCS: 36415; 36569; 71045; 76770; 80048; 80053; 80061; 80069; 80202; 81001; 82533; 82550; 82570; 82607; 82728; 82947; 83036; 83520; 83540; 83605; 83735; 83970; 84100; 84132; 84156; 84165; 84300; 84443; 84466; 84550; 85025; 85044; 85610; 85730; 86021; 86038; 86140; 86160; 86225; 86430; 86803; 87040; 87070; 87075; 87077; 87176; 87186; 87205; 88305; 88311; 93005; 93925; 94010; 96365; 96366; 96367; 99285; J0360; J1100; J1171; J1815; J2003; J2185; J2250; J2405; J2543; J2704; J3010; J3590; J7030; J7040; J7050; P9047

== ENCOUNTER 2025-02-26 14:26 | Emergency (ER) | payer OTHER ==
[2025-02-26] MEDS ORDERED: NA CHLORIDE 0.9% 250 ML ONE ×2 (14:46→19:02)
[2025-02-26] MEDS ORDERED: ONDANSETRON 4 MG/2 ML VIAL ONE (14:46)
[2025-02-26] MEDS ORDERED: PANTOPRAZOLE 40 MG INJ ONE (14:46)
[2025-02-26] MEDS ORDERED: NA CHLORIDE 0.9% 1,000 ML ONE (14:46)
[2025-02-26 15:11] LABS: Absolute Lymphocytes (CBC) 1.4 K/uL (0.7-4.9); Absolute Monocytes 0.7 K/uL (0.1-1.3); Absolute Neutrophil 5.8 K/uL (1.8-8.0); Basophils % 0.6 % (0-1.3); Eosinophils % 0.5 % (0-4.4); Hematocrit 20.4 % (39.6-49.0); Lymphocytes % 17.9 % (15.3-44.8); MCH 29.4 pg (27.0-35.0); MCHC 34.2 g/dL (32.0-36.0); MPV 9.3 fL (7.6-11.3); Monocytes % 8.5 % (3.3-12.3); Neutrophils % 72.5 % (41.7-73.7); Platelets 140 thou/uL (152-406); RBC Red Blood Cell Count 2.38 M/uL (4.33-5.43); Red Cell Distribution Width 18.9 % (12.1-15.2)
[2025-02-26 15:24] LABS: PTT, Activated Partial Thromb 31.4 SECONDS (27.2-37.4); Protime INR 1.43
[2025-02-26 15:30] LABS: Albumin 2.5 g/dL (3.4-5.0); Albumin/Globulin Ratio 0.8 (1.1-1.8); Anion Gap 17.1 mEq/L (5.0-15.0); Globulin 3.3 g/dL (2.3-3.5); Potassium 5.1 mEq/L (3.5-5.1); Protein, Total 5.8 g/dL (6.4-8.2)
[2025-02-26] MEDS ORDERED: OCTREOTIDE ACETATE 500 MCG/ML ONE (15:49)
[2025-02-26] MEDS ORDERED: PROMETHAZINE INJ 25 MG/ML AMP ONE ×2 (15:49→16:52)
[2025-02-26] MEDS ORDERED: NA CHLORIDE 0.9% 500 ML ONE ×2 (15:49→17:18)
--- NOTE | 2025-02-26 15:55 | RAD REPORT ---
EXAMINATION: Abdomen Pelvis W Contrast CLINICAL INDICATION: Male, 54 years old.hematemesis TECHNIQUE: CT abdomen and pelvis was performed, after the administration of IV [facility] Axial, sagittal and coronal reconstructions were obtained. One or more of the following dose reduction techniques were used: Automated exposure control, adjustment of the mA and/o r kV according to patient size, and/or iterative reconstruction. Unless otherwise specified, incidental findings do not require dedicated imaging follow-up. [id number]. COMPARISON: Ultrasound renal 12/27/2024 FINDINGS: LOWER CHEST: Small left pleural effusion.No significant pericardial effusion. Probable lower esophage al varices UPPER GI: No significant abnormality. LIVER: Cirrhotic liver morphology. Low-attenuation lesion in segment 4 measuring 6 mm is probably rosetta ign. GALLBLADDER/BILE DUCTS: No biliary ductal dilatation.? PANCREAS: No mass, ductal dilation, or antwan-pancreatic fluid. SPLEEN: Mild splenomegaly. ADRENALS: No adrenal masses. KIDNEYS AND URETERS: No hydronephrosis.No suspicious renal mass.No renal calculi. ABDOMINAL AORTA AND OTHER VESSELS: Mild atherosclerotic changes. PERITONEUM: Moderate ascites. LYMPH NODES: No pathologic lymphadenopathy. ABDOMINAL WALL: Body wall edema. Thickening at the umbilicus also noted. SMALL BOWEL/COLON: Diffuse colonic and small bowel wall edema. URINARY BLADDER: Underdistended but grossly unremarkable. REPRODUCTIVE ORGANS: No pathologic process. MUSCULOSKELETAL: Hemangioma present in T12. Schmorl's node at L2. A few scattered nonspecific osseous sclerotic foci noted which are probably benign. ADDITIONAL FINDINGS: None. IMPRESSION: No definite acute findings identified. Cirrhosis with evidence of portal hypertension including splenomegaly, likely lower esophageal varice s, and moderate ascites. Diffuse colonic interposition small bowel wall thickening likely secondary to portal hypertension rather than an enterocolitis. Nonspecific thickening at the umbilicus without fluid collection. Correlate for possible superimposed cellulitis. Body wall edema also noted which is primarily related to anasarca.
--- NOTE | 2025-02-26 16:01 | EDPHYS ---
Physician Documentation [facility] Name: Harriet Ng Age: 54 yrs Sex: Male : 1970 Arrival Date: 02/26/2025 Time: 14:26 Bed 6 Private MD: ED Physician Collins Bain HPI: 02/26 14:49 This 54 yrs old Male presents to ER via Wheelchair with complaints of rn Nausea/Vomiting. 14:49 The patient presents to the emergency department with nausea, vomiting. Onset: The rn symptoms/episode began/occurred yesterday. Possible causes: unknown. The symptoms are aggravated by nothing. The symptoms are alleviated by nothing. Severity of symptoms: At their worst the symptoms were moderate in the emergency department the symptoms are unchanged. The patient has not experienced similar symptoms in the past. Patient reports several episodes of hematemesis, is combination of bright red with coffee grounds. Patient is fdc drinker but quit drinking a few months ago. Patient reports feeling generalized weakness, malaise, dizziness and fatigue. Patient reports near syncopal episode at home. No fever.. Historical: - Allergies: 14:35 No Known Allergies; ss - PMHx: 14:35 Diabetes - NIDDM; Hypertension; ss - PSHx: 14:35 hernia repair (en); ss - Immunization history:: Adult Immunizations up to date. - Infectious Disease History:: Denies. - Social history:: Smoking status: Patient denies any tobacco usage or history of. - Family history:: not pertinent. - Hospitalizations: : No recent hospitalization is reported. ROS: 14:49 Constitutional: Negative for fever, chills, and weight loss, Cardiovascular: Negative rn for chest pain, palpitations, and edema, Respiratory: Negative for shortness of breath, cough, wheezing, and pleuritic chest pain, Abdomen/GI: Negative for abdominal pain, positive for hematemesis and dark black stool MS/Extremity: Negative for injury and deformity, Neuro: Positive for generalized weakness Exam: 14:49 Constitutional: Pale Eyes: Pale conjunctiva ENT: Dry mucous membranes rn oncology clinical: Tachycardic, regular Respiratory: Mild tachypnea Abdomen/GI: Negative for abdominal pain or tenderness. Neuro: Awake and alert, GCS 15 16:17 ECG was reviewed by the Attending Physician. rn Vital Signs: 14:34 BP 101 / 64; Pulse 128; Resp 24; Temp 98.6(O); Pulse Ox 100% on R/A; Weight 102.06 kg; ss 15:04 BP 99 / 52; Pulse 125; Resp 19; Pulse Ox 100% on R/A; ld1 15:58 BP 133 / 52; Pulse 132; Resp 25; Pulse Ox 99% on R/A; ld1 16:19 BP 146 / 58; Pulse 133; Resp 23; Pulse Ox 100% on R/A; ld1 16:58 BP 129 / 60; Pulse 131; Resp 20; Pulse Ox 100% on R/A; ld1 17:00 BP 116 / 77; Pulse 135; Resp 24; Pulse Ox 99% on R/A; ld1 17:20 BP 103 / 70; Pulse 126; Resp 24; Temp 98.2(TE); Pulse Ox 100% on R/A; ld1 17:35 BP 112 / 65; Pulse 142; Resp 27; Temp 98.2(TE); Pulse Ox 99% on R/A; ld1 17:50 BP 132 / 58; Pulse 139; Resp 39; Pulse Ox 100% on R/A; ld1 17:55 BP 127 / 107; Pulse 141; Resp 30; Temp 98.9(TE); Pulse Ox 99% on R/A; ld1 18:10 BP 121 / 53; Pulse 134; Resp 22; Pulse Ox 100% on R/A; ld1 18:52 BP 123 / 70; Pulse 141; Resp 18; Pulse Ox 99% on R/A; ld1 MDM: 14:35 Medical Screening Exam initiated rn 15:56 ED course: Discussed case with Dr. Luo, GI, states okay to admit here, requests PPI rn drip and octreotide drip. Told him we are starting blood transfusion at this time. States will consult and be available.. 15:59 Differential diagnosis: gastritis, Upper GI bleed, gastric ulcers, esophageal varices. rn Data reviewed: vital signs, nurses notes, lab test result(s), and as a result, I will admit patient. Consideration of Admission/Observation Patient was admitted/placed on observation. Escalation of care including admission/observation considered. Counseling: I had a detailed discussion with the patient and/or guardian regarding the historical points, exam findings, and any diagnostic results supporting the discharge/admit diagnosis, lab results, the need for further work-up and treatment in the hospital. Response to treatment: the patient's symptoms have mildly improved after treatment, and as a result, I will admit patient. ED course: Last episode of hematemesis was 2 PM. I personally spent 35 minutes engaged in work directly related to the individual patient's care. This does not include any time spent performing procedures. The patient has been deemed critically ill because of GI bleed requiring blood transfusion and organization of consultation with admission to the hospital. 16:17 ED course: Spoke with patient regarding admission here vs transfer, patient refuses admissions manager rn, states is "not going to [facility] no matter what". . 16:52 ED course: Pt with another episode of hematemesis, called Dr. Luo, no answer. . rn 17:11 ED course: Patient with active hematemesis and ongoing restlessness and agitation, rn clinically patient is doing worse, cannot get a hold of GI for immediate or urgent scope, decision made to initiate transfer after discussion with hospitalist and family.. 18:06 ED course: [facility] took over 30 minutes to return our call, still no call back for admissions manager rn. Patient appearing worse so decision made to switch to [facility] who has accepted patient to ICU. Will organize [facility] for transfer.. 02/26 14:43 Order name: Type And Screen rn 02/26 14:42 Order name: CBC with Diff; Complete Time: 15:35 02/26 14:42 Order name: CMP; Complete Time: 15:35 rn 02/26 14:42 Order name: Lipase; Complete Time: 15:35 rn 02/26 14:42 Order name: Protime (+inr); Complete Time: 15:35 rn 02/26 14:42 Order name: Ptt, Activated; Complete Time: 15:35 rn 02/26 14:42 Order name: Lactate w/ 2H reflex if indic.; Complete Time: 16:13 rn 02/26 15:41 Order name: Bb Add On bd 02/26 16:07 Order name: Ghost Lactate-NO COLLECT Timer EDMI 02/26 16:45 Order name: Packed RBCs (Additional Unit) EDMI 02/26 17:39 Order name: ABO/RH no charge; Complete Time: 17:52 EDMI 02/26 18:27 Order name: Bb Add On bd 02/26 14:42 Order name: CT Abd/Pelvis - IV Contrast Only; Complete Time: 16:13 rn 02/26 14:44 Order name: EKG; Complete Time: 14:44 rn 02/26 14:42 Order name: IV Saline Lock; Complete Time: 15:10 rn 02/26 14:42 Order name: Labs collected and sent; Complete Time: 15:10 rn 02/26 14:44 Order name: Cardiac monitoring; Complete Time: 15:10 rn 02/26 14:44 Order name: EKG - Nurse/Tech; Complete Time: 15:46 rn EC:17 Rate is 123 beats/min. Rhythm is regular. QRS [place] is Normal. [place] interval is normal. rn QRS interval is normal. QT interval is normal. No Q waves. T waves are Normal. No ST changes noted. Clinical impression: Sinus tachycardia. Interpreted by me. Reviewed by me. Administered Medications: 15:10 Drug: Ondansetron IVP 4 mg IVP once; over 2 minutes Route: IVP; Site: left forearm; ld1 15:47 Follow up: Response: No adverse reaction ld1 15:10 Drug: NS 0.9% IV 1000 ml IV at 1 bolus Per protocol; to be given as a bolus over 60 ld1 minutes Route: IV; Rate: 1 bolus; Site: left forearm; 16:18 Follow up: Response: No adverse reaction; IV Status: Completed infusion; IV Intake: ld1 1000ml 15:10 Drug: Pantoprazole IVP 40 mg IVP once Route: IVP; Site: left forearm; ld1 15:47 Follow up: Response: No adverse reaction ld1 15:10 Drug: Pantoprazole IV 8 mg/hr IV at 25 ml/hr continuous; (Standard dilution is 80 mg in ld1 250 mL NS) Route: IV; Rate: 25 ml/hr; Site: left forearm; 16:18 Follow up: Response: No adverse reaction; IV Status: Infusion continued ld1 15:58 Drug: Octreotide IV 50 mcg IV at calculated rate once Route: IV; Rate: calculated rate; ld1 Site: right antecubital; 15:58 Drug: Octreotide Infusion (50 mcg/hr) - (Octreotide IV 500 mcg, NS 0.9% IV 500 ml) IV ld1 at 50 ml/hr continuous Route: IV; Rate: 50 ml/hr; Site: right antecubital; 15:58 Drug: Promethazine IVP 12.5 mg IVP once Route: IVP; Site: right antecubital; ld1 16:18 Follow up: Response: No adverse reaction ld1 16:18 Drug: fentaNYL (PF) IVP 50 mcg IVP once Route: IVP; Site: left antecubital; ld1 16:27 Follow up: Response: No adverse reaction ld1 16:27 Drug: Rocephin IV 1 grams IV at calculated rate once; Given slow IV push VERBAL ORDER ld1 PER HOSPITALIST Route: IV; Rate: calculated rate; Site: left antecubital; 17:30 Follow up: Response: No adverse reaction; IV Status: Completed infusion; IV Intake: ld1 100ml 16:58 Drug: Ativan IVP 0.5 mg IVP once Route: IVP; Site: right antecubital; ld1 17:25 Follow up: Response: No adverse reaction; Anxiety unchanged ld1 16:58 Drug: Promethazine IVP 12.5 mg IVP once; verbal order per Dr. Bain Route: IVP; Site: ld1 left antecubital; 17:25 Follow up: Response: No adverse reaction ld1 17:55 Drug: Ativan IVP 0.5 mg IVP once Route: IVP; Site: left wrist; ld1 18:15 Follow up: Response: No adverse reaction ld1 18:15 Drug: Acetaminophen [place] Suppository 650 mg W[place] once Route: [place]; ld1 18:17 Follow up: Response: No adverse reaction ld1 18:28 Drug: Droperidol IVP 1.25 mg IVP once Route: IVP; Site: right wrist; ld1 19:23 Follow up: Response: No adverse reaction ld1 Disposition Summary: 02/26/25 18:06 Transfer Ordered Notes: Transfer Location: [facility]-System rn Reason: Higher level of care rn Condition: Stable(02/26/25 18:06) rn Problem: new(02/26/25 18:06) rn Symptoms: have improved(02/26/25 18:06) rn Accepting Physician: (02/26/25 19:09) ld1 Diagnosis - Hematemesis(02/26/25 18:06) rn - Anemia, unspecified(02/26/25 18:06) rn - GI Bleed/ Gastrointestinal hemorrhage, unspecified(02/26/25 18:06) rn Forms: - Medication Reconciliation Form rn - SBAR form newspaper journalist time excluding procedures: 15:59 Critical care time: Bedside Care: 30 minutes, Consultation: 5 minutes. Total time: 35 rn minutes Signatures: Dispatcher [employer] EDMI Collins Bain MD MD rn Blanchard, Shelby, RN RN Danielle Barakat RN RN ld1 Corrections: (The following items were deleted from the chart) 14:43 14:43 CBC+H.LAB.BRZ ordered. EDMS EDMS 14:43 14:43 COMPREHENSIVE METABOLIC PANEL+C.LAB.BRZ ordered. EDMS EDMS 14:43 14:43 LIPASE+C.LAB.BRZ ordered. EDMS EDMS 14:43 14:43 PROTIME (+INR)+COAG.LAB.BRZ ordered. EDMS EDMS 14:43 14:43 PTT, ACTIVATED+COAG.LAB.BRZ ordered. EDMS EDMS 14:43 14:43 Abdomen Pelvis W Con+CT.RAD.BRZ ordered. EDMI EDMS 18:03 16:00 Inpatient Admission rn rn 18:03 16:00 Chacorta Rendon rn rn 18: 16:00 Intensive Care Unit rn rn 18: 16:00 Stable rn rn 18: 16:00 new rn rn 18:03 16:00 have improved rn rn 18:03 16:00 Standard rn rn 18:03 16:00 rn rn 18:03 16:00 Hematemesis rn rn 18: 16:00 Anemia, unspecified rn rn 18:03 16:00 GI Bleed/ Gastrointestinal hemorrhage, unspecified rn rn 19:09 18:06 rn ld1
--- NOTE | 2025-02-26 16:01 | ER ---
Nurse's Notes [facility] Name: Harriet Ng Age: 54 yrs Sex: Male : 1970 Arrival Date: 02/26/2025 Time: 14:26 Bed 6 Private MD: Diagnosis: Hematemesis;Anemia, unspecified;GI Bleed/ Gastrointestinal hemorrhage, unspecified Presentation: 02/26 14:34 Chief complaint: Patient states: N/V that began last night at 1900 after eating ss crawfish. Pt reports he was vomiting blood. Also c/o diizziness. Coronavirus screen: Client denies travel out of the [place] in the last 14 days. Ebola Screen: Patient denies exposure to infectious person. Patient denies travel to an Ebola-affected area in the 21 days before illness onset. Initial Sepsis Screen: Does the patient meet any 2 criteria? No. Patient's initial sepsis screen is negative. Does the patient have a suspected source of infection? No. Patient's initial sepsis screen is negative. Risk Assessment: Do you want to hurt yourself or someone else? Patient reports no desire to harm self or others. Onset of symptoms was February 25, 2025. 14:34 Acuity: JIMMY 2 ss 14:34 Method Of Arrival: Wheelchair ss Historical: - Allergies: 14:35 No Known Allergies; ss - PMHx: 14:35 Diabetes - NIDDM; Hypertension; ss - PSHx: 14:35 hernia repair (en); ss - Immunization history:: Adult Immunizations up to date. - Infectious Disease History:: Denies. - Social history:: Smoking status: Patient denies any tobacco usage or history of. - Family history:: not pertinent. - Hospitalizations: : No recent hospitalization is reported. Screenin:04 [facility] ED Fall Risk Assessment (Adult) History of falling in the last 3 months, ld1 including since admission No falls in past 3 months (0 pts) Confusion or Disorientation No (0 pts) Intoxicated or Sedated No (0 pts) Impaired Gait No (0 pts) Mobility Assist Device Used No (0 pt) Altered Elimination No (0 pt) Score/Fall Risk Level 0 - 2 = Low Risk Oriented to surroundings, Hourly rounding (assess needs \\T\\ fall precautionary measures) done. Abuse screen: Denies threats or abuse. Denies injuries from another. Nutritional screening: No deficits noted. Tuberculosis screening: No symptoms or risk factors identified. Assessment: 15:04 General: Appears in no apparent distress. uncomfortable, Behavior is cooperative, ld1 anxious. Pain: Denies pain. Neuro: Level of Consciousness is awake, alert, obeys commands, Oriented to person, place, time, situation. Cardiovascular: Capillary refill < 3 seconds Patient's skin is warm and dry. Respiratory: Airway is patent Respiratory effort is even, unlabored. GI: Abdomen is round non-distended, Reports nausea, vomiting. : No signs and/or symptoms were reported regarding the genitourinary system. EENT: No signs and/or symptoms were reported regarding the EENT system. Derm: No signs and/or symptoms reported regarding the dermatologic system. Musculoskeletal: No signs and/or symptoms reported regarding the musculoskeletal system. 15:50 Reassessment: Dr. Bain at . 1 16:00 Reassessment: Pt displaying signs of anxiety. Unable to stay still in bed. Yelling "My ld1 legs are hurting so bad." Notified ERP. See MAR for orders. 16:50 Reassessment: Pt actively throwing up dark red blood. Notified ERP. ERP at bedside. See ld1 MAR for orders. 16:50 Reassessment: No changes from previously documented assessment. Patient states symptoms ld1 have not improved. Neuro: Level of Consciousness is awake, alert, obeys commands, Oriented to person, place, time, situation. Respiratory: Airway is patent Respiratory effort is even, unlabored. GI: Pt is actively vomiting dark red blood with clots. 17:00 Reassessment: No changes from previously documented assessment. Pt rolling around in ld1 bed, trying to D/C IV, confused and combative. Unable to follow instructions at this time. 1 on 1 sitter requested and at bedside with patient. Patient states symptoms have not improved. 18:15 Reassessment: No changes from previously documented assessment. Pt unable to follow ld1 instructions, rolling around in bed. Sitter at bedside trying to get patient in bed and not pull out IV. 2nd PRBC unit completed at this time. Patient states symptoms have not improved. 18:18 Reassessment: No changes from previously documented assessment. Patient states symptoms ld1 have not improved. 18:53 Reassessment: No changes from previously documented assessment. sitter remains at ld1 bedside. pt AAOX0. Pt attempting to climb out of bed. Patient states symptoms have not improved. Neuro: Mcghee Agitation-Sedation Scale (RASS): +2 Agitated Level of Consciousness is confused, Oriented to none. Cardiovascular: Rhythm is sinus tachycardia. Respiratory: Airway is patent Respiratory effort is even, labored. Vital Signs: 14:34 BP 101 / 64; Pulse 128; Resp 24; Temp 98.6(O); Pulse Ox 100% on R/A; Weight 102.06 kg; ss 15:04 BP 99 / 52; Pulse 125; Resp 19; Pulse Ox 100% on R/A; ld1 15:58 BP 133 / 52; Pulse 132; Resp 25; Pulse Ox 99% on R/A; ld1 16:19 BP 146 / 58; Pulse 133; Resp 23; Pulse Ox 100% on R/A; ld1 16:58 BP 129 / 60; Pulse 131; Resp 20; Pulse Ox 100% on R/A; ld1 17:00 BP 116 / 77; Pulse 135; Resp 24; Pulse Ox 99% on R/A; ld1 17:20 BP 103 / 70; Pulse 126; Resp 24; Temp 98.2(TE); Pulse Ox 100% on R/A; ld1 17:35 BP 112 / 65; Pulse 142; Resp 27; Temp 98.2(TE); Pulse Ox 99% on R/A; ld1 17:50 BP 132 / 58; Pulse 139; Resp 39; Pulse Ox 100% on R/A; ld1 17:55 BP 127 / 107; Pulse 141; Resp 30; Temp 98.9(TE); Pulse Ox 99% on R/A; ld1 18:10 BP 121 / 53; Pulse 134; Resp 22; Pulse Ox 100% on R/A; ld1 18:52 BP 123 / 70; Pulse 141; Resp 18; Pulse Ox 99% on R/A; ld1 ED Course: 14:29 Patient arrived in ED. mr 14:35 Collins Bain MD is Attending Physician. rn 14:35 Triage completed. ss 14:35 Arm band placed on right wrist. ss 14:42 Danielle Yang, LEDY is Primary Nurse. ld1 15:03 Radiology exam delayed due to lab results not completed at this time. (BUN/Creatinine) nj IV insertion attempt and/or patient not having appropriate IV at this time. 15:04 Patient has correct armband on for positive identification. Placed in gown. Bed in low ld1 position. Call light in reach. Side rails up X2. ekg monitor tech on. Pulse ox on. NIBP on. Door closed. Noise minimized. Warm blanket given. 15:04 No provider procedures requiring assistance completed. Inserted saline lock: 20 gauge ld1 in left forearm, using aseptic technique. Blood collected. Flushed with 10 mL NS. 15:09 Lactate w/ 2H reflex if indic. Sent. ld1 15:09 Type And Screen Sent. ld1 15:28 CT Abd/Pelvis - IV Contrast Only In Process Unspecified. EDMS 15:46 Inserted saline lock: 20 gauge in right antecubital area, using aseptic technique. ld1 Flushed with 10 mL NS. 16:00 Chacorta Rendon MD is Hospitalizing Provider. rn 16:40 Inserted saline lock: 22 gauge in right wrist, using aseptic technique. Flushed with 10 ss mL NS. 17:09 initiated transfer to [facility]. bd 17:54 initiated transfer to [facility]. bd 18:51 pt accepted in transfer to [facility] [phone] navarrete admin approval given by kelly Ayala. 19:08 Patient transferred, IV remains in place. ld1 Administered Medications: 15:10 Drug: Ondansetron IVP 4 mg IVP once; over 2 minutes Route: IVP; Site: left forearm; ld1 15:47 Follow up: Response: No adverse reaction ld1 15:10 Drug: NS 0.9% IV 1000 ml IV at 1 bolus Per protocol; to be given as a bolus over 60 ld1 minutes Route: IV; Rate: 1 bolus; Site: left forearm; 16:18 Follow up: Response: No adverse reaction; IV Status: Completed infusion; IV Intake: ld1 1000ml 15:10 Drug: Pantoprazole IVP 40 mg IVP once Route: IVP; Site: left forearm; ld1 15:47 Follow up: Response: No adverse reaction ld1 15:10 Drug: Pantoprazole IV 8 mg/hr IV at 25 ml/hr continuous; (Standard dilution is 80 mg in ld1 250 mL NS) Route: IV; Rate: 25 ml/hr; Site: left forearm; 16:18 Follow up: Response: No adverse reaction; IV Status: Infusion continued ld1 15:58 Drug: Octreotide IV 50 mcg IV at calculated rate once Route: IV; Rate: calculated rate; ld1 Site: right antecubital; 15:58 Drug: Octreotide Infusion (50 mcg/hr) - (Octreotide IV 500 mcg, NS 0.9% IV 500 ml) IV ld1 at 50 ml/hr continuous Route: IV; Rate: 50 ml/hr; Site: right antecubital; 15:58 Drug: Promethazine IVP 12.5 mg IVP once Route: IVP; Site: right antecubital; ld1 16:18 Follow up: Response: No adverse reaction ld1 16:18 Drug: fentaNYL (PF) IVP 50 mcg IVP once Route: IVP; Site: left antecubital; ld1 16:27 Follow up: Response: No adverse reaction ld1 16:27 Drug: Rocephin IV 1 grams IV at calculated rate once; Given slow IV push VERBAL ORDER ld1 PER HOSPITALIST Route: IV; Rate: calculated rate; Site: left antecubital; 17:30 Follow up: Response: No adverse reaction; IV Status: Completed infusion; IV Intake: ld1 100ml 16:58 Drug: Ativan IVP 0.5 mg IVP once Route: IVP; Site: right antecubital; ld1 17:25 Follow up: Response: No adverse reaction; Anxiety unchanged ld1 16:58 Drug: Promethazine IVP 12.5 mg IVP once; verbal order per Dr. Bain Route: IVP; Site: ld1 left antecubital; 17:25 Follow up: Response: No adverse reaction ld1 17:55 Drug: Ativan IVP 0.5 mg IVP once Route: IVP; Site: left wrist; ld1 18:15 Follow up: Response: No adverse reaction ld1 18:15 Drug: Acetaminophen CO Suppository 650 mg CO once Route: CO; ld1 18:17 Follow up: Response: No adverse reaction ld1 18:28 Drug: Droperidol IVP 1.25 mg IVP once Route: IVP; Site: right wrist; ld1 19:23 Follow up: Response: No adverse reaction ld1 Medication: 15:04 VIS not applicable for this client. ld1 Intake: 16:18 IV: 1000ml; Total: 1000ml. ld1 17:30 IV: 100ml; Total: 1100ml. ld1 Outcome: 16:00 Decision to Hospitalize by Provider. rn 18:06 ER care complete, transfer ordered by . rn 19:08 Transferred by helicopter to [facility], Transfer form ld1 completed. X-rays sent w/ patient. 19:08 Condition: stable 19:08 Instructed on the need for transfer, 19:09 Patient left the ED. ld1 Signatures: Dispatcher [employer] EDMS Cassia Renee, Britney, Reg Reg mr Collins Bain MD MD rn Blanchard, Shelby, RN RN ss Jordan, Nathan nj Lewis, Lynsay, RN RN ll1 Danielle Yang RN RN ld1 Corrections: (The following items were deleted from the chart) 18:44 18:10 BP 121 / 053; Pulse 134bpm; Resp 22bpm; Pulse Ox 100% RA; ld1 ld1
[2025-02-26] MEDS ORDERED: CEFTRIAXONE 1,000 MG in NA CHLORIDE 0.9% 50 ML IVPB STA (16:09)
[2025-02-26] MEDS ORDERED: FENTANYL CITR 100 MCG/2 ML ONE (16:15)
[2025-02-26] MEDS ORDERED: CEFTRIAXONE 1000 MG/VIAL ONE (16:24)
[2025-02-26] MEDS ORDERED: LORazepam 2 MG/ML VIAL ONE ×2 (16:51→17:28)
[2025-02-26] MEDS ORDERED: ACETAMINOPHEN 650MG/RECT SUPP PR ONE (18:08)
[2025-02-26] MEDS ORDERED: droPERidol 5 MG/2 ML VIAL ONE (18:28)
[2025-02-26] MEDS ORDERED: DIPHENHYDRAMINE 50 MG/ML VIAL ONE (19:27)
[2025-02-26 20:38] VITALS: TEMP 98.9
[2025-02-26 20:40] VITALS: BP 123/70; O2SAT 99
--- NOTE | 2025-02-27 11:59 | EKG ---
Test Date: 2025-02-26 Test Time: 15:19:03 Endband Cutter Hand: Xin PACE MEASUREMENT RESULTS: Intervals: Rate: 0 TN: QRSD: 0 QT: 0 QTc: 0 [place]: P: TN: QRS: 0 T: 0 INTERPRETIVE STATEMENTS: No QRS complexes found, no ECG analysis possible Compared to ECG 12/25/2024 12:26:04 Sinus rhythm no longer present Electronically Signed On 02-27-25 11:57:21 CDT by Scooby Olmos
--- NOTE | 2025-02-27 11:59 | EKG ---
Test Date: 2025-02-26 Test Time: 15:44:07 Punch Out Crew Member: Xin SI MEASUREMENT RESULTS: Intervals: Rate: 123 OH: 136 QRSD: 66 QT: 304 QTc: 435 [place]: P: 24 OH: 136 QRS: 9 T: -24 INTERPRETIVE STATEMENTS: Sinus tachycardia Septal infarct, age undetermined Possible Inferior infarct, age undetermined Abnormal ECG Compared to ECG 02/26/2025 15:19:03 Myocardial infarct finding now present Electronically Signed On 02-27-25 11:57:17 CDT by Scooby Olmos
== END 2025-02-26 19:09 | disposition short-term general hospital (02) ==
LOC: ER 14:26
PROC: 30233N1 Transfusion of Nonautologous Red Blood Cells into Peripheral Vein, Percutaneous Approach (ICD-10-PCS; principal; 2025-02-26)
DX: D64.9 Anemia, unspecified (principal); E11.9 Type 2 diabetes mellitus without complications; I10 Essential (primary) hypertension
CPT/HCPCS: 93005 ×2; 85025; 36415; 86900; 86850; 85610; 86901; 83605; 85730; 86920 ×3; 83690; 80053; 74177; 99285; 36430; Q9967; J2550 ×2; J1200; J2354; J2470; J3010; J2405; J1790; P9016 ×3; J7050 ×3; J7040; J7030; J0696